=== PATIENT | female | born 1935 | race Caucasian/White ===

== ENCOUNTER 2017-11-02 15:00 | Inpatient (IN) | payer OTHER, MEDICARE ==
[~2017-11-02] VITALS: Ht 152.4 cm; Wt 52.6 kg
[~2017-11-02 15:00] MED LIST: ATOR10 PO; CARV6.25 PO; ECOT81TA2 PO; FURO20 PO; LISI5 PO; PROT40TA PO
[2017-11-02 15:13] VITALS: BP 184/88; PULSE 74; RESP 16; TEMP 98.3; O2SAT 96
[2017-11-02] MEDS ORDERED: SACU1TAB4 PO ×2 (15:13→16:03)
[2017-11-02] MEDS ORDERED: LOSA50TA PO (15:13)
[2017-11-02] MEDS ORDERED: ASPI81TA23 PO (15:13)
[2017-11-02 15:17] VITALS: BP 184/88; PULSE 75; RESP 16; TEMP 98.3; O2SAT 96
--- NOTE | 2017-11-02 15:53 | PD ---
HPI Chief Complaint: Fall Time Seen by Provider: 15:51 Travel History International Travel<30 days: No Contact w/Intl Traveler<30days: No Traveled to known affect area: No History of Present Illness HPI 81-year-old female presents to the emergency department after a [place]. Patient is not on blood thinners except for a baby aspirin daily. Patient states that she tripped over a rock or some sort of bump in the sidewalk and fell landing on her left wrist, left elbow, right wrist, and forehead. Patient denies loss of consciousness or headaches at this time. Denies blurred vision. Denies unusual neck or back pain. Currently she has left wrist, left elbow, and right wrist pain. Left elbow has limited range of motion with moderate pain that increases with movement. Left wrist is also moderately painful that increases with movement. Patient denies numbness or tingling of the extremities. Family states that she had a biopsy of the left eyebrow approximately 1 month ago, an area close to where she has a laceration currently. Patient states she feels fine but has significant left elbow pain. Denies fever or chills. Denies nausea, vomiting or diarrhea. PFSH Past Medical History Hx Anticoagulant Therapy: Yes Arthritis: Yes Cancer: No Cardiovascular Problems: Yes Chest Pain: No Congestive Heart Failure: Yes (NEW ONSET 04/19/16) Diminished Hearing: No Endocrine: No Genitourinary: No Headaches: Yes Herniated Disk: Yes ("SHATTERED DISCS" ) Immune Disorder: No Musculoskeletal: Yes Neurologic: No Psychiatric: No Reproductive: No Respiratory: No Immunizations Current: Yes Ulcer: Yes (GASTRIC ?) Tetanus Vaccination: Unknown Menopausal: Yes : 3 Para: 3 Past Surgical History Surgical History: No Previous Surgery Other Surgery: No Social History Alcohol Use: No Tobacco Use: No (QUIT 1994) Substance Use: No Allergies-Medications (Allergen,Severity, Reaction): Coded Allergies: No Known Allergies (Unverified , 04/19/16) Reported Meds & Prescriptions Reported Meds & Active Scripts Active Reported Entresto (Sacubitril-Valsartan) 97-103 Mg Tab 1 Tab PO BID Carvedilol 12.5 Mg Tab 12.5 Mg PO BID Pantoprazole (Pantoprazole Sodium) 40 Mg Tab 40 Mg PO DAILY Atorvastatin (Atorvastatin Calcium) 10 Mg Tab 10 Mg PO DAILY Furosemide 20 Mg Tab 20 Mg PO EVERY OTHER DAY Aspirin EC (Aspirin) 81 Mg Tabdr 81 Mg PO DAILY Review of Systems Except as stated in HPI: all other systems reviewed are Neg Physical Exam Narrative GENERAL: Well developed well nourished in mild distress SKIN: Focused skin assessment warm/dry. HEAD: Normocephalic. 2-3cm linear laceration to left brow, bleeding controlled. EYES: Pupils equal and round. No scleral icterus. No injection or drainage. EOMI ENT: No nasal bleeding or discharge. Mucous membranes pink and moist. NECK: Trachea midline. No JVD. Midline nontender CARDIOVASCULAR: Regular rate and rhythm. No murmur appreciated. RESPIRATORY: No accessory muscle use. Clear to auscultation. Breath sounds equal bilaterally. GASTROINTESTINAL: Abdomen soft, non-tender, nondistended. MUSCULOSKELETAL: No obvious deformities. No clubbing. No cyanosis. No edema. Left wrist- TTP to joint line, limited ROM secondary to pain. Neurovasc intact Right wrist-TTP to joint line, limited ROM secondary to pain. Neurovasc intact Left elbow- Obvious deformities with edema, limited ROM secondary to pain. Neurovasc intact BACK: No CVA tenderness. No rash. No point tenderness on palpation of the spine. NEUROLOGICAL: Awake and alert. No obvious cranial nerve deficits. Motor grossly within normal limits. Normal speech. PSYCHIATRIC: Appropriate mood and affect; insight and judgment normal. Data Data Last Documented VS Vital Signs Date Time Temp Pulse Resp B/P (MAP) Pulse Ox O2 Delivery O2 Flow Rate FiO2 11/02/17 17:31 69 16 149/68 (95) 96 Room Air 11/02/17 15:[address] Cerv Spine W/O Contrast (11/02/17 ) Ct Brain W/O Iv Contrast(Rout) (11/02/17 ) Wrist, Complete ([id number]) (11/02/17 ) Chest, Single Ap (11/02/17 ) Knee, Complete (4vws) (11/02/17 ) Electrocardiogram (11/02/17 16:59) Complete Blood Count With Diff (11/02/17 16:59) Comprehensive Metabolic Panel (11/02/17 16:59) Magnesium (Mg) (11/02/17 16:59) Ckmb (Isoenzyme) Profile (11/02/17 16:59) Troponin I (11/02/17 16:59) Urinalysis - C+S If Indicated (11/02/17 16:59) Blood Glucose (11/02/17 16:59) Ondansetron Inj (Zofran Inj) (11/02/17 17:00) Sodium Chlor 0.9% 1000 Ml Inj (Ns 1000 M (11/02/17 16:59) Wrist, Limited (Ap&Lat) (11/02/17 ) Elbow, Limited (Ap&Lat) (11/02/17 ) Ct Facial Bones W/O Iv Cont (11/02/17 ) Tetanus/Diphtheria Tox Adult (Tetanus/Di (11/02/17 17:45) Admit Order (Ed Use Only) (11/02/17 19:11) Labs Laboratory Tests Test 11/02/17 17:20 White Blood Count 7.3 TH/MM3 Red Blood Count 3.32 MIL/MM3 Hemoglobin 11.1 GM/DL Hematocrit 32.3 % Mean Corpuscular Volume 97.4 FL Mean Corpuscular Hemoglobin 33.5 PG Mean Corpuscular Hemoglobin Concent 34.4 % Red Cell Distribution Width 13.0 % Platelet Count 192 TH/MM3 Mean Platelet Volume 9.2 FL Neutrophils (%) (Auto) 77.3 % Lymphocytes (%) (Auto) 13.7 % Monocytes (%) (Auto) 5.5 % Eosinophils (%) (Auto) 2.7 % Basophils (%) (Auto) 0.8 % Neutrophils # (Auto) 5.6 TH/MM3 Lymphocytes # (Auto) 1.0 TH/MM3 Monocytes # (Auto) 0.4 TH/MM3 Eosinophils # (Auto) 0.2 TH/MM3 Basophils # (Auto) 0.1 TH/MM3 CBC Comment DIFF FINAL Differential Comment Urine Color LIGHT-YELLOW Urine Turbidity CLEAR Urine pH 7.5 Urine Specific [place] 1.007 Urine Protein NEG mg/dL Urine Glucose (UA) NEG mg/dL Urine Ketones NEG mg/dL Urine Occult Blood NEG Urine Nitrite NEG Urine Bilirubin NEG Urine Urobilinogen LESS THAN 2.0 MG/DL Urine Leukocyte Esterase NEG Microscopic Urinalysis Comment CULT NOT INDICATED Blood Urea Nitrogen 7 MG/DL Creatinine 0.56 MG/DL Random Glucose 127 MG/DL Total Protein 6.9 GM/DL Albumin 4.3 GM/DL Calcium Level 9.0 MG/DL Magnesium Level 1.8 MG/DL Alkaline Phosphatase 40 U/L Aspartate Amino Transf (AST/SGOT) 23 U/L Alanine Aminotransferase (ALT/SGPT) 17 U/L Total Bilirubin 0.4 MG/DL Sodium Level 128 MEQ/L Potassium Level 4.0 MEQ/L Chloride Level 92 MEQ/L Carbon Dioxide Level 27.0 MEQ/L Anion Gap 9 MEQ/L Estimat Glomerular Filtration Rate 103 ML/MIN Total Creatine Kinase 90 U/L Troponin I 0.65 NG/ML [facility] Medical Decision Making Medical Screen Exam Complete: Yes Emergency Medical Condition: Yes Differential Diagnosis Left and right wrist fracture, sprain, strain Left elbow fracture, strain, contusion Left brow fracture, laceration, contusion Narrative Course 81-year-old female with a history of CHF presents to the emergency department after a mechanical [place] that occurred [place] the [place]. Patient is not on blood thinners except for a baby aspirin daily. Patient states that she tripped over a rock or some sort of bump in the sidewalk and fell landing on her left wrist, left elbow, right wrist, and forehead. Patient denies loss of consciousness or headaches at this time. Denies blurred vision. Denies unusual neck or back pain. Currently she has left wrist, left elbow, and right wrist pain. Left elbow has limited range of motion with moderate pain that increases with movement. Left wrist is also painful that increases with movement. Patient denies numbness or tingling. Family states that she had a biopsy of the left eyebrow approximately 1 month ago and area close to where she has a laceration currently. Patient states she feels fine but has significant left elbow pain. Denies fever or chills. Denies nausea, vomiting or diarrhea. Denies chest pain or shortness of breath. Vital signs stable. While the patient was in x-ray, a CODE BLUE was called. Patient apparently had a syncopal episode. She was brought back immediately her room and was reassessed. Pt stated she had the episode after sitting up for the chest xray. 1L NS bolus administered, labs ordered. EKG demonstrated normal sinus rhythm without ST depressions or elevations. Last Impressions Wrist X-Ray 11/02/17 0000 Signed Impressions: Service Date/Time: Thursday, November 02, 2017 16:39 - CONCLUSION: No evidence of fracture the wrist. Kirby Melo MD Wrist X-Ray 11/02/17 0000 Signed Impressions: Service Date/Time: Thursday, November 02, 2017 16:50 - CONCLUSION: Impacted comminuted intra-articular distal radius fracture. Kirby Melo MD Maxillofacial CT 11/02/17 0000 Signed Impressions: Service Date/Time: Thursday, November 02, 2017 17:44 - CONCLUSION: No evidence of fracture. Bilateral TMJ arthrosis noted. Kirby Melo MD Knee X-Ray 11/02/17 0000 Signed Impressions: Service Date/Time: Thursday, November 02, 2017 16:43 - CONCLUSION: 1. No evidence of fracture. 2. Small joint effusion. Kirby Melo MD Head CT 11/02/17 0000 Signed Impressions: Service Date/Time: Thursday, November 02, 2017 17:44 - CONCLUSION: No acute intracranial findings. Kirby Melo MD Elbow X-Ray 11/02/17 0000 Signed Impressions: Service Date/Time: Thursday, November 02, 2017 16:28 - CONCLUSION: Olecranon process fracture. Kirby Melo MD Chest X-Ray 11/02/17 0000 Signed Impressions: Service Date/Time: Thursday, November 02, 2017 17:17 - CONCLUSION: No acute cardiopulmonary disease identified. Kirby Melo MD Cervical Spine CT 11/02/17 0000 Signed Impressions: Service Date/Time: Thursday, November 02, 2017 17:44 - CONCLUSION: 1. No evidence of fracture. 2. 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 There is evidence of particularly prominent arthrosis at C1 to with superior migration of the C2 odontoid process (cranial settling). This finding can be seen with rheumatoid arthritis. 3. Mild central canal narrowing at C3-4 and C4-5. Kirby Melo MD CBC & BMP Diagram 11/02/17 17:20 Total Protein 6.9, Albumin 4.3, Calcium Level 9.0, Magnesium Level 1.8, Alkaline Phosphatase 40 L, Aspartate Amino Transf (AST/SGOT) 23, Alanine Aminotransferase (ALT/SGPT) 17, Total Bilirubin 0.4 Troponin elevated likely secondary to cardiomyopathy. Laceration repair completed left brow. Suture removal in 7-10 days. Note that she had a BCC removal approx 1 month ago and the site appears to be healing well. Please see Dr. Gardner's note for dispo. Pt will be admitted and surgery in the morning. Procedures Procedure Narrative LACERATION LOCATION: left upper brow LENGTH: 2-3cm NUMBER OF STITCHES/TOM: 5 REPAIR: The area of the laceration was prepped with Betadine and sterilely draped. The laceration was infiltrated with 1% lidocaine without epinephrine. The wound was copiously irrigated and explored without evidence of foreign body, tendon injury or neurovascular injury. The wound was closed using 6-0 Prolene. This was a angle layer repair. A sterile dressing was applied. The patient was advised to keep the dressing clean and dry. Patient tolerated the procedure well. Diagnosis Primary Impression: Laceration of head Qualified Codes: S01.01XA - Laceration without foreign body of scalp, initial encounter Additional Impressions: Elbow fracture Qualified Codes: S42.402A - Unspecified fracture of lower end of left humerus , initial encounter for closed fracture Wrist fracture Qualified Codes: S62.101A - Fracture of unspecified carpal bone, right wrist, initial encounter for closed fracture Episode of syncope Qualified Codes: R55 - Syncope and collapse Condition: Stable Sandhya Purvis Nov 02, 2017 15:53
[2017-11-02] MEDS ORDERED: CARV12.52 PO (16:03)
[2017-11-02] MEDS ORDERED: ATOR10TA15 PO (16:03)
[2017-11-02] MEDS ORDERED: FURO20TA PO (16:03)
[2017-11-02] MEDS ORDERED: PANT40TA3 PO (16:03)
[2017-11-02] MEDS ORDERED: SODIUM CHLOR 0.9% 1000 ML INJ 1,000 ML IV ONE (16:59)
[2017-11-02] MEDS ORDERED: ONDANSETRON HCL 4 MG/2 ML VIAL IVP ONE (17:00)
[2017-11-02 17:31] VITALS: BP 149/68; PULSE 69; RESP 16; O2SAT 96
--- NOTE | 2017-11-02 17:37 | RADRPT ---
EXAM DATE/TIME: 11/02/2017 16:28 [facility] COMPARISON: No previous studies available for comparison. INDICATIONS : Pain from fall. MEDICAL HISTORY : None. SURGICAL HISTORY : None. ENCOUNTER: Initial ACUITY: 1 day PAIN SCORE: 10/10 LOCATION: Left elbow. FINDINGS: 3 views left elbow. Fracture of the olecranon process of the ulna with 1 cm displacement. Joint effus ion noted. Alignment otherwise within normal limits. CONCLUSION: Olecranon process fracture. Kirby Melo MD on November 02, 2017 at 17:35 Board Certified Radiologist. This report was verified electronically.
--- NOTE | 2017-11-02 17:41 | RADRPT ---
EXAM DATE/TIME: 11/02/2017 16:39 [facility] COMPARISON: No previous studies available for comparison. INDICATIONS : Pain from fall. MEDICAL HISTORY : None. SURGICAL HISTORY : None. ENCOUNTER: Initial ACUITY: 1 day PAIN SCORE: 5/10 LOCATION: Left wrist. FINDINGS: 2 views left wrist. Diffuse bone demineralization. Chondrocalcinosis of the triangular fibrocartilage and radiocarpal joint articular cartilage. Alignment within normal limits. No evidence of fracture. Osteoarthritic findings noted at the base of the thumb. CONCLUSION: No evidence of fracture the wrist. Kirby Melo MD on November 02, 2017 at 17:39 Board Certified Radiologist. This report was verified electronically.
[2017-11-02] MEDS ORDERED: TETANUS/DIPHTHERIA TOXOID ADULT 0.5 ML VIAL IM ONE (17:45)
--- NOTE | 2017-11-02 17:45 | RADRPT ---
EXAM DATE/TIME: 11/02/2017 16:43 [facility] COMPARISON: No previous studies available for comparison. INDICATIONS : Pain from fall. MEDICAL HISTORY : None. SURGICAL HISTORY : None. ENCOUNTER: Initial ACUITY: 1 day PAIN SCORE: 5/10 LOCATION: Right knee. FINDINGS: 4 views right knee. Diffuse bone demineralization. No evidence of fracture. Alignment within normal l imits. No joint narrowing. Small joint effusion. CONCLUSION: 1. No evidence of fracture. 2. Small joint effusion. Kirby Melo MD on November 02, 2017 at 17:43 Board Certified Radiologist. This report was verified electronically.
--- NOTE | 2017-11-02 17:46 | RADRPT ---
EXAM DATE/TIME: 11/02/2017 16:50 [facility] COMPARISON: No previous studies available for comparison. INDICATIONS : Pain from fall. MEDICAL HISTORY : None. SURGICAL HISTORY : None. ENCOUNTER: Initial ACUITY: 1 day PAIN SCORE: 10/10 LOCATION: Right wrist. FINDINGS: 3 views right wrist. Comminuted impacted fracture of the distal radius with extension into the radioc arpal joint. 3 mm cortical step off of the volar surface. Extensive chondrocalcinosis. Severe osteoar thritic findings of the thumb carpometacarpal joint. CONCLUSION: Impacted comminuted intra-articular distal radius fracture. Kirby Melo MD on November 02, 2017 at 17:44 Board Certified Radiologist. This report was verified electronically.
[2017-11-02 17:50] LABS: AUTOMATED NEUTROPHIL # 5.6 TH/MM3 (1.8-7.7); BASOPHIL # 0.1 TH/MM3 (0-0.2); BASOPHIL % 0.8 % (0.0-2.0); EOSINOPHIL # 0.2 TH/MM3 (0-0.4); EOSINOPHIL % 2.7 % (0.0-4.0); HEMATOCRIT 32.3 % (35.0-46.0); HEMOGLOBIN 11.1 GM/DL (11.6-15.3); LYMPH % 13.7 % (9.0-44.0); MEAN CELL VOLUME 97.4 FL (80.0-100.0); MEAN CORPUSCULAR HEMOGLOBIN 33.5 PG (27.0-34.0); MEAN CORPUSCULAR HGB CONC 34.4 % (32.0-36.0); MEAN PLATELET VOLUME 9.2 FL (7.0-11.0); MONO % 5.5 % (0.0-8.0); MONOCYTE # 0.4 TH/MM3 (0-0.9); NEUT % 77.3 % (16.0-70.0); PLATELET COUNT 192 TH/MM3 (150-450); RED BLOOD COUNT 3.32 MIL/MM3 (4.00-5.30); WHITE BLOOD COUNT 7.3 TH/MM3 (4.0-11.0)
[2017-11-02 17:51] LABS: BILIRUBIN, URINE NEG (NEG); BLOOD, URINE NEG (NEG); GLUCOSE,URINE NEG (NEG); KETONE, URINE NEG (NEG); NITRITE,URINE NEG (NEG); PH, URINE 7.5 (5.0-8.5); URINE COLOR LIGHT-YELLOW (YELLW/STRAW); URINE LEUKOCYTE ESTERASE NEG (NEG)
[2017-11-02 18:08] LABS: ALBUMIN 4.3 GM/DL (3.4-5.0); AST (GOT) 23 U/L (15-37); BLOOD UREA NITROGEN 7 MG/DL (7-18); CHLORIDE 92 MEQ/L (98-107); CREATININE 0.56 MG/DL (0.50-1.00); GLOMERULAR FILTRATION RATE 103 ML/MIN (>89); GLUCOSE,RANDOM 127 MG/DL (74-106); MAGNESIUM 1.8 MG/DL (1.5-2.5); SODIUM (NA) 128 MEQ/L (136-145)
[2017-11-02 18:09] LABS: ALT (GPT) 17 U/L (10-53)
[2017-11-02 18:13] LABS: ALKALINE PHOSPHATASE 40 U/L (45-117); TOTAL BILIRUBIN ADULT 0.4 MG/DL (0.2-1.0); TOTAL PROTEIN 6.9 GM/DL (6.4-8.2)
--- NOTE | 2017-11-02 18:14 | RADRPT ---
EXAM DATE/TIME: 11/02/2017 17:17 [facility] COMPARISON: CHEST SINGLE AP, May 10, 2016, 0:08. INDICATIONS : Shortness of breath. MEDICAL HISTORY : None. SURGICAL HISTORY : None. ENCOUNTER: Initial ACUITY: 1 day PAIN SCORE: 0/10 LOCATION: Bilateral chest FINDINGS: Single AP view of the chest. The lungs are clear. Tortuous, calcified thoracic aorta Cardiomediastina l silhouette otherwise within normal limits. No evidence of pleural effusion or pneumothorax. CONCLUSION: No acute cardiopulmonary disease identified. Kirby Melo MD on November 02, 2017 at 18:12 Board Certified Radiologist. This report was verified electronically.
[2017-11-02 18:18] LABS: TROPONIN I 0.65 NG/ML (0.02-0.05)
--- NOTE | 2017-11-02 18:23 | RADRPT ---
EXAM DATE/TIME: 11/02/2017 17:44 [facility] COMPARISON: No previous studies available for comparison. INDICATIONS : Trauma; fall. RADIATION DOSE: 29.05 CTDIvol (mGy) MEDICAL HISTORY : Cardiovascular disease. Congestive heart failure. SURGICAL HISTORY : None. ENCOUNTER: Initial ACUITY: 1 day PAIN SCALE: 5/10 LOCATION: cranial TECHNIQUE: Multiple contiguous axial images were obtained of the head. Using automated exposure control and adj ustment of the mA and/or kV according to patient size, radiation dose was kept as low as reasonably a chievable to obtain optimal diagnostic quality images. DICOM format image data is available electro nically for review and comparison. FINDINGS: CEREBRUM: The ventricles are normal for age. No evidence of midline shift, mass lesion, hemorrhage or acute in farction. No extra-axial fluid collections are seen. POSTERIOR FOSSA: The cerebellum and brainstem are intact. The 4th ventricle is midline. The cerebellopontine angle i s unremarkable. EXTRACRANIAL: The visualized portion of the orbits is intact. SKULL: The calvaria is intact. No evidence of skull fracture. CONCLUSION: No acute intracranial findings. Kirby Melo MD on November 02, 2017 at 18:20 Board Certified Radiologist. This report was verified electronically.
--- NOTE | 2017-11-02 18:46 | RADRPT ---
EXAM DATE/TIME: 11/02/2017 17:44 [facility] COMPARISON: No previous studies available for comparison. INDICATIONS : Trauma; fall. RADIATION DOSE: 50.51 CTDIvol (mGy) MEDICAL HISTORY : Cardiovascular disease. Congestive heart failure. SURGICAL HISTORY : None. ENCOUNTER: Initial ACUITY: 1 day PAIN SCORE: 5/10 LOCATION: facial TECHNIQUE: Volumetric scanning of the facial bones was performed. Using automated exposure control and adjustme nt of the mA and/or kV according to patient size, radiation dose was kept as low as reasonably achiev able to obtain optimal diagnostic quality images. DICOM format image data is available electronic[employer] y for review and comparison. FINDINGS: ORBITS: The orbital and infraorbital osseous structures are intact. The retroconal structures have a normal configuration. No radiopaque foreign bodies are seen. NASAL BONE: The nasal bone and maxillary spine are intact ZYGOMATIC ARCHES: Symmetric without evidence of fracture. SINUSES: The maxillary, ethmoid and frontal sinuses are intact. No air-fluid levels seen. INTRACRANIAL: No intracranial air seen. CRIBIFORM PLATE: Grossly intact. CONCLUSION: No evidence of fracture. Bilateral TMJ arthrosis noted. Kirby Melo MD on November 02, 2017 at 18:43 Board Certified Radiologist. This report was verified electronically.
--- NOTE | 2017-11-02 18:50 | RADRPT ---
EXAM DATE/TIME: 11/02/2017 17:44 [facility] COMPARISON: No previous studies available for comparison. INDICATIONS : Trauma; fall. RADIATION DOSE: 11.49 CTDIvol (mGy) MEDICAL HISTORY : Cardiovascular disease. Congestive heart failure. SURGICAL HISTORY : None. ENCOUNTER: Initial ACUITY: 1 day PAIN SCALE: 5/10 LOCATION: neck TECHNIQUE: Volumetric scanning of the cervical spine was performed. Multiplanar reconstructions in the sagittal, coronal and oblique axial planes were performed. Using automated exposure control and adjustment o f the mA and/or kV according to patient size, radiation dose was kept as low as reasonably achievable to obtain optimal diagnostic quality images. DICOM format image data is available electronically f or review and comparison. FINDINGS: VERTEBRAE: Severe arthritic findings at C1-2 with bone erosion of the odontoid process and superior migration of the odontoid process relative to the skull base. These findings can be seen with rheumatoid arthriti s. No evidence of fracture. ALIGNMENT: Superior migration of C2 relative to C1 and skull base. 2 mm anterolisthesis C7 on T1. Broad-based disc osteophyte complexes and prominent facet arthrosis at every level of the cervical sp ine. Minimal central canal narrowing at C3-4 and C4-5. Mild bilateral neural foraminal narrowing at C 5-6. CONCLUSION: 1. No evidence of fracture. 2. 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 There is evidence of partic ularly prominent arthrosis at C1 to with superior migration of the C2 odontoid process (cranial settl ing). This finding can be seen with rheumatoid arthritis. 3. Mild central canal narrowing at C3-4 and C4-5. Kirby Melo MD on November 02, 2017 at 18:44 Board Certified Radiologist. This report was verified electronically.
[2017-11-02 19:15] VITALS: BP 159/71; PULSE 73; RESP 18; O2SAT 94
--- NOTE | 2017-11-02 19:16 | PD ---
Data Data Last Documented VS Vital Signs Date Time Temp Pulse Resp B/P (MAP) Pulse Ox O2 Delivery O2 Flow Rate FiO2 11/02/17 17:31 69 16 149/68 (95) 96 Room Air 11/02/17 15:[address] Cerv Spine W/O Contrast (11/02/17 ) Ct Brain W/O Iv Contrast(Rout) (11/02/17 ) Wrist, Complete ([id number]) (11/02/17 ) Chest, Single Ap (11/02/17 ) Knee, Complete (4vws) (11/02/17 ) Electrocardiogram (11/02/17 ) Electrocardiogram (11/02/17 16:59) Complete Blood Count With Diff (11/02/17 16:59) Comprehensive Metabolic Panel (11/02/17 16:59) Magnesium (Mg) (11/02/17 16:59) Ckmb (Isoenzyme) Profile (11/02/17 16:59) Troponin I (11/02/17 16:59) Urinalysis - C+S If Indicated (11/02/17 16:59) Blood Glucose (11/02/17 16:59) Ondansetron Inj (Zofran Inj) (11/02/17 17:00) Sodium Chlor 0.9% 1000 Ml Inj (Ns 1000 M (11/02/17 16:59) Wrist, Limited (Ap&Lat) (11/02/17 ) Elbow, Limited (Ap&Lat) (11/02/17 ) Ct Facial Bones W/O Iv Cont (11/02/17 ) Tetanus/Diphtheria Tox Adult (Tetanus/Di (11/02/17 17:45) Admit Order (Ed Use Only) (11/02/17 19:11) Labs Laboratory Tests Test 11/02/17 17:20 White Blood Count 7.3 TH/MM3 Red Blood Count 3.32 MIL/MM3 Hemoglobin 11.1 GM/DL Hematocrit 32.3 % Mean Corpuscular Volume 97.4 FL Mean Corpuscular Hemoglobin 33.5 PG Mean Corpuscular Hemoglobin Concent 34.4 % Red Cell Distribution Width 13.0 % Platelet Count 192 TH/MM3 Mean Platelet Volume 9.2 FL Neutrophils (%) (Auto) 77.3 % Lymphocytes (%) (Auto) 13.7 % Monocytes (%) (Auto) 5.5 % Eosinophils (%) (Auto) 2.7 % Basophils (%) (Auto) 0.8 % Neutrophils # (Auto) 5.6 TH/MM3 Lymphocytes # (Auto) 1.0 TH/MM3 Monocytes # (Auto) 0.4 TH/MM3 Eosinophils # (Auto) 0.2 TH/MM3 Basophils # (Auto) 0.1 TH/MM3 CBC Comment DIFF FINAL Differential Comment Urine Color LIGHT-YELLOW Urine Turbidity CLEAR Urine pH 7.5 Urine Specific Atkins 1.007 Urine Protein NEG mg/dL Urine Glucose (UA) NEG mg/dL Urine Ketones NEG mg/dL Urine Occult Blood NEG Urine Nitrite NEG Urine Bilirubin NEG Urine Urobilinogen LESS THAN 2.0 MG/DL Urine Leukocyte Esterase NEG Microscopic Urinalysis Comment CULT NOT INDICATED Blood Urea Nitrogen 7 MG/DL Creatinine 0.56 MG/DL Random Glucose 127 MG/DL Total Protein 6.9 GM/DL Albumin 4.3 GM/DL Calcium Level 9.0 MG/DL Magnesium Level 1.8 MG/DL Alkaline Phosphatase 40 U/L Aspartate Amino Transf (AST/SGOT) 23 U/L Alanine Aminotransferase (ALT/SGPT) 17 U/L Total Bilirubin 0.4 MG/DL Sodium Level 128 MEQ/L Potassium Level 4.0 MEQ/L Chloride Level 92 MEQ/L Carbon Dioxide Level 27.0 MEQ/L Anion Gap 9 MEQ/L Estimat Glomerular Filtration Rate 103 ML/MIN Total Creatine Kinase 90 U/L Troponin I 0.65 NG/ML MDM Supervised Visit with MASOOD: Yes Narrative Course I, Dr. Gardner, have reviewed the advance practice practitioner's documentation and am in agreement, met with the patient face to face, made the diagnosis, and the medical decision making was done by me. See her note for further details. Briefly this is an 81-year-old female with history of cardiomegaly who was brought in by ambulance after mechanical fall. The patient was complaining of right wrist pain, left elbow pain, left wrist pain, and head pain. Patient was initially evaluated about an hour prior to me arriving to my shift. Upon arrival there was a CODE BLUE called overhead at x-ray which I responded to an this happened to be this patient. She had a syncopal episode while her x-rays were being performed. Patient reports history of cardiomegaly and CHF and is on Lasix every other day and is followed by control operator flow coat Dr. Solis. She denies having any chest pain today. The fall that she had earlier today she denies losing consciousness. Patient has a closed right/impacted distal radius fracture as well as a closed left olecranon fracture. Left forehead laceration was repaired by my PA. EKG shows a left bundle-branch block pattern with a rate of 73, no acute ischemic abnormalities. The patient's troponin is slightly elevated at 0.65. She has had slight elevation in troponin in the past and is not complaining of any chest pain. This is likely secondary to cardiomegaly. I discussed the case with on-call orthopedist Dr. Tate. Plan is to splint her left arm in a long-arm splint and right wrist in a short arm volar splint that she has an IV in this arm, and the patient will be admitted to the medical service for cardiac clearance for ORIF. He would like the patient to be NPO after midnight. CT head, cervical spine, and facial bones show no acute findings. Patient and the patient's daughter were made aware of all findings and of plan. Case discussed with hospitalist Dr. Ross who will admit the patient to her service. Diagnosis Primary Impression: Laceration of head Qualified Codes: S01.01XA - Laceration without foreign body of scalp, initial encounter Additional Impressions: Episode of syncope Qualified Codes: R55 - Syncope and collapse Wrist fracture Qualified Codes: S62.101A - Fracture of unspecified carpal bone, right wrist, initial encounter for closed fracture Elbow fracture Qualified Codes: S42.402A - Unspecified fracture of lower end of left humerus , initial encounter for closed fracture Admitting Information Admitting Physician Requests: Admit Condition: Stable Chuckie Gardner MD Nov 02, 2017 19:16
[2017-11-02] MEDS ORDERED: ACETAMINOPHEN/HYDROcodone 325 MG/5 MG TAB PO ONE (20:00)
[2017-11-02] MEDS: SODIUM CHLOR 0.9% 1000 ML INJ 1,000 ML IV SCH (20:14)
[2017-11-02] MEDS ORDERED: BISACODYL 10 MG SUPP RECTAL PRN (20:15)
[2017-11-02] MEDS ORDERED: SODIUM CHLORIDE 0.9% FLUSH 10 ML FLUSH IV FLUSH PRN (20:15)
[2017-11-02] MEDS ORDERED: MAGNESIUM HYDROXIDE SUSP 30 ML CUP PO PRN (20:15)
[2017-11-02] MEDS ORDERED: LACTULOSE SYRUP 20 GM/30 ML CUP PO PRN (20:15)
[2017-11-02] MEDS ORDERED: NALOXONE HCL 0.4 MG/ML AMP IV PUSH PRN (20:15)
[2017-11-02] MEDS ORDERED: SENNOSIDES 8.6 MG TAB PO PRN (20:15)
[2017-11-02 20:45] VITALS: BP 151/72; PULSE 57; RESP 16; TEMP 97.7; O2SAT 95
[2017-11-02] MEDS ORDERED: SODIUM CHLORID 0.9% 500 ML IV PRN (21:00)
[2017-11-02] MEDS: SODIUM CHLORIDE 0.9% FLUSH 10 ML FLUSH IV FLUSH SCH (21:00)
[2017-11-02] MEDS ORDERED: LACTATED RINGER'S 1000 ML IV PRN (21:00)
[2017-11-02] MEDS ORDERED: CHLORHEXIDINE GLUCONATE 2 % 1 PACK (2 CLOTHS) TOPICAL PRN (21:15)
[2017-11-02] MEDS ORDERED: METOPROLOL TARTRATE 25 MG TAB PO PRN (21:15)
[2017-11-02] MEDS ORDERED: POVIDONE IODINE 5% (ANTISEPSIS KIT) 4 APPLICATIONS EACH NARE PRN (21:15)
--- NOTE | 2017-11-02 21:21 | HHI.HP ---
[facility] Service [facility] Primary Care Physician Noe Pena MD Admission Diagnosis fall, wrist fracture, elbow fracture, syncope, CHI Diagnoses: Travel History International Travel<30 Days: No Contact w/Intl Traveler <30 Da: No Traveled to Known Affected Are: No History of Present Illness 81-year-old female with a past medical history significant for CHF (last echo done on 04/26 showed an EF of 25-30%), hypertension, osteoarthritis and a history of temporal arteritis presents to the emergency department after suffering a mechanical fall. The patient states she [place] the [place] and [place]. She denies loss of consciousness at that time. X-rays positive for an impacted intra-articular distal radius fracture of the right wrist and a left olecranon process fracture. The patient also sustained a laceration to the head just above the eyebrow which was repaired in the emergency department. While in x-ray, the patient had a syncopal episode for which a CODE BLUE was called. She regained consciousness without intervention. Lab work remarkable for an elevated troponin at 0.65, was less than 0.02 on . The patient denies any chest pain or previous syncopal episodes. EKG showed NSR without ST segment elevations or depressions. Review of Systems Denies fever or chills Denies blurry vision, otorrhea, rhinorrhea Denies sore throat and cough No chest pain, palpitations, shortness of breath No abdominal pain Denies constipation/diarrhea/nausea/vomiting Denies muscle pain/weakness No rashes Past Family Social History Past Medical History CHF (EF of 25-30%) Hypertension Osteoarthritis History of temporal arteritis GERD Hyperlipidemia Past Surgical History None Reported Medications Reported Meds & Active Scripts Active Reported Entresto (Sacubitril-Valsartan) 97-103 Mg Tab 1 Tab PO BID Carvedilol 12.5 Mg Tab 12.5 Mg PO BID Pantoprazole (Pantoprazole Sodium) 40 Mg Tab 40 Mg PO DAILY Atorvastatin (Atorvastatin Calcium) 10 Mg Tab 10 Mg PO DAILY Furosemide 20 Mg Tab 20 Mg PO EVERY OTHER DAY Aspirin EC (Aspirin) 81 Mg Tabdr 81 Mg PO DAILY Allergies: Coded Allergies: No Known Allergies (Unverified , 04/19/16) Family History Denies family history of CHF/DM Social History Denies alcohol, tobacco or illicit drugs. Physical Exam Vital Signs Vital Signs Date Time Temp Pulse Resp B/P (MAP) Pulse Ox O2 Delivery O2 Flow Rate FiO2 11/02/17 20:33 11/02/17 19:15 73 18 159/71 (100) 94 Room Air 11/02/17 17:31 69 16 149/68 (95) 96 Room Air 11/02/17 15:17 98.3 75 16 184/88 (120) 96 Room Air 11/02/17 15:16 75 16 96 Room Air 11/02/17 15:13 98.3 74 16 184/88 (120) 96 Physical Exam GENERAL: female lying in bed SKIN: No rashes, ecchymoses or lesions. Cool and dry. HEAD: Ecchymoses surrounding left eye. 3 cm laceration above left eyebrow, hemostatic status post repair. Normocephalic. No temporal or scalp tenderness. EYES: Pupils equal round and reactive. Extraocular motions intact. No scleral icterus. No injection or drainage. ENT: Nose without bleeding, purulent drainage or septal hematoma. Throat without erythema, tonsillar hypertrophy or exudate. Uvula midline. Airway patent. NECK: Trachea midline. No JVD or lymphadenopathy. Supple, nontender, no meningeal signs. CARDIOVASCULAR: Regular rate and rhythm without murmurs, gallops, or rubs. RESPIRATORY: Clear to auscultation. Breath sounds equal bilaterally. No wheezes , rales, or rhonchi. GASTROINTESTINAL: Abdomen soft, non-tender, nondistended. No hepato-splenomegaly , or palpable masses. No guarding. MUSCULOSKELETAL: Bilateral lower extremities without edema. No calf tenderness. Bilateral upper extremities both splinted, neurovascularly intact. NEUROLOGICAL: Awake and alert. Cranial nerves II through XII intact. Motor and sensory grossly within normal limits. Normal speech. Laboratory Laboratory Tests Test 11/02/17 17:20 White Blood Count 7.3 Red Blood Count 3.32 Hemoglobin 11.1 Hematocrit 32.3 Mean Corpuscular Volume 97.4 Mean Corpuscular Hemoglobin 33.5 Mean Corpuscular Hemoglobin Concent 34.4 Red Cell Distribution Width 13.0 Platelet Count 192 Mean Platelet Volume 9.2 Neutrophils (%) (Auto) 77.3 Lymphocytes (%) (Auto) 13.7 Monocytes (%) (Auto) 5.5 Eosinophils (%) (Auto) 2.7 Basophils (%) (Auto) 0.8 Neutrophils # (Auto) 5.6 Lymphocytes # (Auto) 1.0 Monocytes # (Auto) 0.4 Eosinophils # (Auto) 0.2 Basophils # (Auto) 0.1 CBC Comment DIFF FINAL Differential Comment Urine Color LIGHT-YELLOW Urine Turbidity CLEAR Urine pH 7.5 Urine Specific Purdin 1.007 Urine Protein NEG Urine Glucose (UA) NEG Urine Ketones NEG Urine Occult Blood NEG Urine Nitrite NEG Urine Bilirubin NEG Urine Urobilinogen LESS THAN 2.0 Urine Leukocyte Esterase NEG Microscopic Urinalysis Comment CULT NOT INDICATED Blood Urea Nitrogen 7 Creatinine 0.56 Random Glucose 127 Total Protein 6.9 Albumin 4.3 Calcium Level 9.0 Magnesium Level 1.8 Alkaline Phosphatase 40 Aspartate Amino Transf (AST/SGOT) 23 Alanine Aminotransferase (ALT/SGPT) 17 Total Bilirubin 0.4 Sodium Level 128 Potassium Level 4.0 Chloride Level 92 Carbon Dioxide Level 27.0 Anion Gap 9 Estimat Glomerular Filtration Rate 103 Total Creatine Kinase 90 Troponin I 0.65 Result Diagram: 11/02/17 1720 11/02/17 1720 Caprini VTE Risk Assessment Caprini VTE Risk Assessment: Mod/High Risk (score >= 2) Caprini Risk Assessment Model Point Value = 1 Point Value = 2 Point Value = 3 Point Value = 5 Age 41-60 Minor surgery BMI > 25 kg/m2 Swollen legs Varicose veins or History of unexplained or recurrent spontaneous Oral contraceptives or hormone replacement Sepsis (< 1 month) Serious lung disease, including pneumonia (< 1 month) Abnormal pulmonary function Acute myocardial infarction Congestive heart failure (< 1 month) History of inflammatory bowel disease Medical patient at bed rest Age 61-74 Arthroscopic surgery Major open surgery (> 45 min) Laparoscopic surgery (> 45 min) Malignancy Confined to bed (> 72 hours) Immobilizing plaster cast Central venous access Age >= 75 History of VTE Family history of VTE Factor V Leiden Prothrombin [id number] Lupus anticoagulant Anticardiolipin antibodies Elevated serum homocysteine Heparin-induced thrombocytopenia Other congenital or acquired thrombophilia Stroke (< 1 month) Elective arthroplasty Hip, pelvis, or leg fracture Acute spinal cord injury (< 1 month) Prophylaxis Regimen Total Risk Factor Score Risk Level Prophylaxis Regimen 0-1 Low Early ambulation 2 Moderate Order ONE of the following: *Sequential Compression Device (SCD) *Heparin 5000 units SQ BID 3-4 Higher Order ONE of the following medications: *Heparin 5000 units SQ TID *Enoxaparin/Lovenox 40 mg SQ daily (WT < 150 kg, CrCl > 30 mL/min) *Enoxaparin/Lovenox 30 mg SQ daily (WT < 150 kg, CrCl > 10-29 mL/min) *Enoxaparin/Lovenox 30 mg SQ BID (WT < 150 kg, CrCl > 30 mL/min) AND/OR *Sequential Compression Device (SCD) 5 or more Highest Order ONE of the following medications: *Heparin 5000 units SQ TID (Preferred with Epidurals) *Enoxaparin/Lovenox 40 mg SQ daily (WT < 150 kg, CrCl > 30 mL/min) *Enoxaparin/Lovenox 30 mg SQ daily (WT < 150 kg, CrCl > 10-29 mL/min) *Enoxaparin/Lovenox 30 mg SQ BID (WT < 150 kg, CrCl > 30 mL/min) AND *Sequential Compression Device (SCD) Assessment and Plan Assessment and Plan Assessment/plan: 1. Impacted intra-articular distal radius fracture of the right wrist/Left olecranon process fracture Orthopedic surgery consulted, appreciate assistance Nothing by mouth after midnight in anticipation of OR tomorrow 2. Syncope Witnessed in the emergency department Unclear etiology Echo pending Carotid ultrasound pending 3. Elevated troponin Troponin 0.65 EKG shows normal sinus rhythm without ST segment elevations or depressions, images reviewed family Patient with history of elevated troponin in 2016 Patient's pm technician is Dr. Kate, consulted and appreciate recommendations in anticipation of surgery tomorrow ACS rule out pending; serial troponins/EKGs 4. CHF Last ECHO done 04/2016, showed an EF of 25-30% Continue home Lasix Appreciate cardiology recommendations 5. Hypertension Continue home carvedilol 6. GERD/hyperlipidemia Continue home medications FEN NPO NS at 50 cc/hr Electrolytes: NS for hyponatremia, follow up BMP Holding pharmacologic anticoagulation in anticipation of operative intervention tomorrow Case discussed with the ER physician at length Physician Certification 2 Midnight Certification Type: Admission for Inpatient Services Order for Inpatient Services The services are ordered in accordance with Medicare regulations or non- Medicare payer requirements, as applicable. In the case of services not specified as inpatient-only, they are appropriately provided as inpatient services in accordance with the 2-midnight benchmark. Estimated LOS (days): 2 2 days is the estimated time the patient will need to remain in the hospital, assuming treatment plan goals are met and no additional complications. Post-Hospital Plan: Not yet determined Casandra Ross MD Nov 02, 2017 21:21
[2017-11-02] MEDS: CARVEDILOL 12.5 MG TAB PO SCH (22:00)
[2017-11-02] MEDS: DOCUSATE SODIUM 50 MG/SENNA 8.6 MG TAB PO SCH (22:00)
[2017-11-02] MEDS: SACUBITRIL/VALSARTAN 97 MG-103 MG TAB PO SCH (22:00)
[2017-11-03] VITALS (13 sets, daily range): BP systolic 65–147; BP diastolic 42–67; PULSE 29–88; RESP 12–25; TEMP 98–100.4; O2SAT 88–100
[2017-11-03 01:53] LABS: TROPONIN I 1.57 NG/ML (0.02-0.05)
[2017-11-03] MEDS ORDERED: HEPARIN-D5W 25,000 U/250 ML 250 ML IV PRN (02:00)
[2017-11-03 03:13] LABS: AUTOMATED NEUTROPHIL # 5.2 TH/MM3 (1.8-7.7); BASOPHIL % 0.4 % (0.0-2.0); EOSINOPHIL # 0.1 TH/MM3 (0-0.4); EOSINOPHIL % 0.8 % (0.0-4.0); HEMATOCRIT 27.3 % (35.0-46.0); HEMOGLOBIN 9.2 GM/DL (11.6-15.3); LYMPH % 13.5 % (9.0-44.0); LYMPHOCYTE # 0.9 TH/MM3 (1.0-4.8); MEAN CELL VOLUME 97.5 FL (80.0-100.0); MEAN CORPUSCULAR HGB CONC 33.8 % (32.0-36.0); MONO % 8.8 % (0.0-8.0); MONOCYTE # 0.6 TH/MM3 (0-0.9); NEUT % 76.5 % (16.0-70.0); PLATELET COUNT 154 TH/MM3 (150-450); RED CELL DISTRIBUTION WIDTH 13.2 % (11.6-17.2); WHITE BLOOD COUNT 6.8 TH/MM3 (4.0-11.0)
[2017-11-03 03:26] LABS: INTERNATIONAL NORMALIZED RATIO 1.4 RATIO
[2017-11-03 03:41] LABS: BICARBONATE 27.2 MEQ/L (21.0-32.0); CALCIUM 8.4 MG/DL (8.5-10.1); CREATININE 0.42 MG/DL (0.50-1.00)
[2017-11-03 04:11] LABS: TROPONIN I 1.52 NG/ML (0.02-0.05)
[2017-11-03] MEDS ORDERED: HEPARIN SODIUM - IV 10,000 UNITS/10 ML VIAL IV PUSH PRN ×2 (08:00)
--- NOTE | 2017-11-03 08:27 | RADRPT ---
EXAM DATE/TIME: 11/03/2017 07:42 [place] COMPARISON: No previous studies available for comparison. INDICATIONS : Syncope. MEDICAL HISTORY : CHF. Cardiac disorders. SURGICAL HISTORY : None. ENCOUNTER: Initial ACUITY: 1 day PAIN SCORE: 8/10 LOCATION: Bilateral neck PEAK SYSTOLIC VELOCITIES (cm/sec): ICA/CCA RATIO: Right: 1.3 Left: 1.4 ICA: Right: 90.4 Left: 102.3 CCA: Right: 67.7 Left: 70.9 ECA: Right: 155.8 Left: 118.6 VERTEBRAL: Right: 43.4 antegrade Left: 47.8 antegrade Elevated flow velocities and ICA/CCA ratios have been found to correlate with increased degrees of vessel stenosis, calculated as percentage of diameter relative to a normal segment of distal ICA/CCA FINDINGS: RIGHT CAROTID: There is no evidence for a hemodynamically significant carotid stenosis. Minimal int imal hyperplasia is present with scattered calcific plaque. LEFT CAROTID: There is no evidence for a hemodynamically significant carotid stenosis. Minimal inti mal hyperplasia is present with scattered calcific plaque. VERTEBRAL ARTERIES: Flow is antegrade in both vertebral arteries. MISCELLANEOUS: There are no ancillary masses or adenopathy. CONCLUSION: Negative examination for a hemodynamically significant carotid stenosis. Board Certified Radiologist. This report was verified electronically.
[2017-11-03] MEDS: ATORVASTATIN 10 MG TAB PO SCH (09:00)
[2017-11-03] MEDS: DOCUSATE SODIUM 50 MG/SENNA 8.6 MG TAB PO SCH ×2 (09:00→21:00)
[2017-11-03] MEDS: PANTOPRAZOLE SOD 40 MG DELAYED RELEASE TAB PO SCH (09:00)
[2017-11-03] MEDS: SACUBITRIL/VALSARTAN 97 MG-103 MG TAB PO SCH ×2 (09:00→21:00)
[2017-11-03] MEDS: SODIUM CHLORIDE 0.9% FLUSH 10 ML FLUSH IV FLUSH SCH ×2 (09:00→21:00)
[2017-11-03] MEDS: CARVEDILOL 12.5 MG TAB PO SCH (09:00)
[2017-11-03] MEDS ORDERED: METOPROLOL TARTRATE 25 MG TAB PO SCH (09:45)
[2017-11-03] MEDS ORDERED: ASPIRIN 81 MG CHEW TAB CHEW ONE (09:45)
--- NOTE | 2017-11-03 11:06 | MB ---
cc: JEREMIAS RODRIGUES M.D. DATE OF CONSULTATION: 11/03/2017 REASON FOR CONSULTATION: Elevation of elevated troponin. HISTORY OF PRESENT ILLNESS: Carole Louis is a very complicated 81 year-old female, admitted to the hospital with orthopedic injuries but noted also to have a heart attack. Her cardiac history dates back to April of 2016 when she had congestive heart failure. At that time her ejection fraction was only 25 to 30% and she had mild aortic stenosis. She had mild to moderate tricuspid regurgitation and her right ventricular systolic pressure was markedly elevated at 61 mmHg. She had a LifeVest for a brief period of time. Her ejection fraction actually returned to normal in October of 2016. She had a nuclear stress test before that which showed only an old apical OK. Difficult to obtain a history of chest pain on her because she says she has severe arthritis and severe osteoporosis and she hurts all over. She has been telling her daughter that her ribs are broken raising suspicion about whether the rib pain is actually her cardiac pain. Yesterday she tripped and sustained significant orthopedic injuries as documented by Dr. Tate. They were requesting preoperative clearance but the troponin has risen from 0.65 to 1.57. Her left elbow has been in a 90 degree flexion position and her right arm is able to lay out straight. Her cardiac risk factors include previous smoking. She smoked at least ten years. She has hyperlipidemia. There is no obvious family history of coronary artery disease. She has had longstanding hypertension. She had temporal arteritis in 1993. PAST MEDICAL HISTORY: Previous CHF, hypertension, osteoarthritis, osteoporosis, previous temporal arteritis, gastroesophageal reflux disease, hyperlipidemia. PAST SURGICAL HISTORY: Negative. MEDICATIONS PRIOR TO ADMISSION: 1. Entresto 97/103 p.o. b.i.d. 2. Carvedilol 12.5 milligrams p.o. b.i.d. 3. Pantoprazole 40 mg daily. 4. Atorvastatin 10 mg daily 5. Furosemide 10 milligrams every other day. 6. Aspirin 81 milligrams daily. ALLERGIES: NONE KNOWN. SOCIAL HISTORY Notable for previous smoking. She quit apparently around 1994. PHYSICAL EXAMINATION: The physical exam reveals an elderly frail female. Vital signs: Charted. She has had some marked elevations of blood pressures as high as 184/88 when she first came in. She has ecchymosis, lacerations on her face. NECK: Bilateral bruits which I suspect is radiation of her cardiac murmur. CHEST: Clear anteriorly. She is not able to sit up. CARDIAC: S1-S2, regular rate and rhythm with an obvious 2/6 early aortic stenosis type murmur. ABDOMEN: Soft. EXTREMITIES: Reveal intact femoral pulses. Pedal pulses are palpable but do not feel strong. NEUROLOGIC: Alert, and oriented. EKG Her EKG yesterday showed sinus rhythm, really no acute ST-T wave changes. Synthroid EKGs are showing about 0.[address] depression in V6, T-wave inversion in aVL. T-wave has gone from upright to flatter, slightly inverted in lead 1. These changes could be interpreted as evolving ischemia. X-RAYS: Chest x-ray shows no acute disease. LABORATORY DATA: Her creatinine is 0.42, potassium is 3.5, hematocrit 27.3, creatinine has gone from 0.65, to 1.57 and 1.[address]. IM[address]ION Acute ST segment elevation OK. She appears somewhat frail. She has fallen and has significant orthopedic injuries in her left elbow. RECOMMENDATIONS I am going to resume her home cardiac medications and add nitro paste, keep her on aspirin. I am not going to add heparin at this point because of her injuries. I think it would be best if we did a diagnostic cardiac catheterization to define her anatomy. I am worried that she may have very critical disease, critical enough o have dropped her EF a obss-ynl-w-half ago but subsequently recovered so she might have left main or severe three vessel disease. She does not look to be a very good candidate for bypass, from that I could see right now. Certainly will have to look at that further. All this history was obtained in the presence of the daughter. I have answered all their questions. I am waiting for a stat echo and am contemplating doing a cath later today. MD VICKY Gould/MAIKEL /9:30 AM /10:32 AM
[2017-11-03] MEDS ORDERED: NITROGLYCERIN 2% OINT 1 GM PACKET TOPICAL SCH (12:00)
--- NOTE | 2017-11-03 12:26 | MB ---
cc: MICHELA PARADA DATE OF CONSULTATION: 11/03/2017. REASON FOR CONSULTATION: Left elbow and right wrist fracture. HISTORY OF PRESENT ILLNESS: The patient is an 81-year-old female who does not have significant problems with these areas in the past who had a mechanical fall. The patient slipped at a park and fell. She did not lose consciousness. The patient was found to have fractures as noted above and she had a laceration on the head, which was sutured. The patient while in x-ray had a syncopal episode and a Code Blue was called. They did find that there were some elevated troponins and this is being monitored. The patient was started apparently on a heparin drip per the nursing report to me. The patient has a history of congestive heart failure. She just recently had an echocardiogram and an ultrasound done of the carotids. Dr. Yogi Steven had just been in to see the patient right when I was interviewing the patient, and he is concerned about the patient having an acute myocardial infarction. REVIEW OF SYSTEMS: The review of systems was negative except as noted in the history of present illness. PAST MEDICAL HISTORY: The medical history is as above. PAST SURGICAL HISTORY: None. MEDICATIONS: See the chart. Note that she does take aspirin. ALLERGIES: NO KNOWN DRUG ALLERGIES. FAMILY HISTORY: Family history is noncontributory. PHYSICAL EXAMINATION: VITAL SIGNS: The patient's temperature is 97.7, pulse is 57, blood pressure is 151/72. GENERAL: She is Awake, alert and oriented times three. She has normal affect, insight and judgment. Her daughter is at the bedside. HEAD, EYES, EARS, NOSE, THROAT: The head shows a laceration over the right orbital region, which was sutured. Extraocular muscles intact. Oropharynx is moist. NECK: Her neck is supple. HEART: Regular rate and rhythm. LUNGS: Normal inspiratory effort with no labored breathing. No audible wheeze. EXTREMITIES: The right upper extremity is currently splinted. Fingers have some mild swelling. She has normal sensation distally. The left upper extremity is also splinted with a long-arm splint. Limited range of motion of the fingers. She has normal sensation about the fingertips with some mild swelling. The bilateral knees show just a little bit of swelling about the right knee with normal alignment about both knees. She can actively move the toes well on both sides. LABORATORY STUDIES: White cell count of 7.3, hematocrit of 32.3, platelet count of 192,000. Coagulations: INR is 1.4. Chemistries: Sodium is 133. I see concerning trends in the troponins from 0.65 to 1.57 and then 1.52. RADIOLOGICAL STUDIES: CT of the cervical spine showed no evidence of acute fracture by report. I reviewed the images and the reports for the left elbow and the right wrist and this shows that the patient has a mildly to moderately displaced olecranon fracture on the left side. The right side has an interarticular fracture in the volar aspect with mild displacement and mild displacement of the articular surface along with degenerative changes noted. There is comminution noted. Report of the x-rays of the left wrist show no fractures. Report of the x-rays of the right knee show no evidence of fracture. ASSESSMENT: 1. Left olecranon fracture mild to moderately displaced. 2. Right distal radius fracture, comminuted, interarticular with mild displacement of the articular surface. 3. Evidence of a likely acute myocardial infarction. DECISION-MAKING: Initially I had started talking to the patient about the options of surgical management for the left elbow, and we talked about the possible surgical management for the right wrist since if we were going to be in surgery it would make sense to reduce the wrist to help with earlier range of motion and reduce the chance of chronic pain due to interarticular displacement that was noted. Left elbow fracture generally would do better with fracture fixation because of the displacement. We talked about the risks and benefits of surgical management including injury to nerves, blood vessels, bleeding, infection, failure of hardware, need for re-operation, continued pain, loss of range of motion of associated joints, DVT, pulmonary embolus, pneumonia and . As we were finishing up our conversation, Dr. Steven came into the room and expressed that the patient is likely having an acute myocardial infarction, which ultimately significantly changes our treatment plan. He is very concerned this could be a very severe problem for this patient, acutely and chronically, and he is requiring likely intervention with a hard catheterization. At this point, we will not be moving forward with surgical management for either the left elbow or the right wrist due to more urgent medical conditions that could potentially be life-threatening. We will follow up with the patient over the next couple of days to see how she is doing, which could help us decide if we are going to be doing any other type of intervention. Thank you for allowing me to participate in the care of this patient. MD LUZ Pal/MIKHAIL /9:08 AM /11:55 AM
[2017-11-03] MEDS ORDERED: HEPARIN-NS/PF INJ 1,000 ML ONE (12:47)
[2017-11-03] MEDS ORDERED: MORPHINE SULFATE 8 MG/ML INJ ONE (12:50)
[2017-11-03] MEDS ORDERED: IOHEXOL 350 MG/ML 50 ML BTL (for Cath Lab) OTHER ONE (13:15)
[2017-11-03] MEDS ORDERED: MIDAZOLAM HCL 2 MG/2 ML VIAL ONE (13:19)
[2017-11-03] MEDS ORDERED: SODIUM CHLOR 0.9% 1000 ML INJ 1,000 ML IV SCH (13:56)
[2017-11-03] MEDS ORDERED: MISC INFORMATION XX ONE (14:00)
[2017-11-03] MEDS ORDERED: BACITRACIN OINT 0.9 GM PKT TOP ONE (14:00)
--- NOTE | 2017-11-03 14:13 | CATHPROC ---
[facility] HIS Report Study Information Study Number Admission Scheduled Start Study Start [id number] Nov 02 2017 7:12PM 11/03/2017 Nov 03 2017 12:17PM [place] [facility] Cardiac Catheterization Admit Source Facility Department Other [facility] Physician and Clinical Staff Initial Yogi Parra Hog Scalder Radha Rodriguez,RN Hog Scalder Layla Judge,LESLIE Recorder Radha Castellano,RT(R) ScrRadha DeckerRT(R) (BS) Procedures Performed Procedure Location (Site) Vessel Name L Heart Cath Wire insertion Fem Art (left) Femoral Art Equipment Time Statue Maker Description Size Mfg Part Number Used/Scraped TRANSDUCER, TRUWAVE [id number] 13:32 PHAM CORADO * Used W/STOCKCOCK *[id number] *[id number] *[id number] PIGTAIL ANG. 145 INFINITI 534-652S CATHETER *[id number] 13:32 MEDLINE INDUSTRIES PACK, CCL CUSTOM * Used *[id number] 13:32 Elepago PACER PEN, SKIN DUAL W/ RULER * Used *[id number] 13:32 Factor 14 MEDICAL SHEATH, FR6.5 PRELUDE 11CM FR 6.5 038ACT Used *[id number] 13:32 Factor 14 MEDICAL WIRE, 3MMJ .035 180CM 180CM Used *[id number] 13:32 NAMIC MANIFOLD, 4 PORT * Used *[id number] 13:32 NYCOMED OMNIPAQUE, 350 MG, 100ML 100ML [id number] Used 13:51 NYCOMED OMNIPAQUE, 350 MG, 150ML 150ML [id number] Used [id number] 13:32 Defixo MEDICAL BLANKET,WARM AIR CCL * Used *[id number] History: Allergies Allergy Reaction No Known Allergies History: Risk Factors Family History of Hypertension Dyslipidemia Previous MD Previous Heart Failure Premature CAD No Yes No No Yes Prior Valve Prior PCI Prior CABG Surgery No No No Cerebrovascular Peripheral Artery Chronic Lung On Dialysis Diabetes Disease Disease Disease No No No No No History: Stress Tests Stress or Imaging Studies Performed No History: Other Current Smoker Method Quit Packs a Day No Cigarettes 22 Years Ago 1 Labs Hgb (g/dl) Hct (%) RBC (MIL/MM3) WBC (l/cumm) Platelets (thousands) 11.60-17.00 35.00-51.00 4.00-5.90 4.00-11.00 150.00-450.00 9.2 27.3 2.8 6.8 154 Glucose (mg/dl) BUN (mg/dl) Creatinine (mg/dl) BUN:Creatinine (1:x) 74.00-106.00 7.00-18.00 0.50-1.30 10.00-20.00 111 6 0.4 15 Na (meq/l) K (meq/l) Cl (meq/l) CO2 (mmol/L) Ca (mg/dl) 136.00-145.00 3.50-5.10 98.00-107.00 21.00-32.00 8.50-10.10 133 3.5 99 27.2 8.4 PT (sec) PTT (sec) INR (PTT:PT) 9.80-11.60 24.30-30.10 0.90-1.10 14 36.2 1.4 Troponin I (ng/ml) CPK (u/l) CPK-MB (ng/ML) 0.02-0.05 26.00-308.00 0.50-3.60 1.5 99 Not Drawn Medication Medication Total Dose (Bolus/Oral) Medication Total Dosage/Unit 1% XYLOCAINE 40 mL MORPHINE 4 mg VERSED 1 mg Medications (Bolus/Oral) Medication Time Given Dosage/Unit Administered By Reason 11/03/2017 12:53:22 MORPHINE 4 mg Radha Rodriguez PM 4 mg MORPHINE given in lab by Radha Rodriguez, RN in Right Antecubital via Peripheral IV. VERSED 11/03/2017 1:19:15 PM 1 mg Radha Rodriguez 1 mg VERSED given in lab by Radha Rodriguez, LESLIE via Peripheral IV. 1% XYLOCAINE 11/03/2017 1:21:51 PM 20 mL Yogi Steven 20 mL 1% XYLOCAINE given in lab by Yogi Steven in Right Groin via Subcutaneous. 1% XYLOCAINE 11/03/2017 1:28:24 PM 20 mL Yogi Steven 20 mL 1% XYLOCAINE given in lab by Yogi Steven in Left Groin via Subcutaneous. Medication (Drip) Medication Time Given Dosage/Unit Concentration/Unit Diluent (ml) Solutio n 11/03/2017 12:59:34 IV Solutions 0 mL (IV) 1000 NaCl .9 PM Patient arrived on IV Solutions in Right Antecubital via Peripheral IV. Pump/Drip Flow = 20 ml/hr usi ng NaCl .9. Initial Case Assessment Cardiovascular HR Rhythm NIBP Chest Pain 56 gloria 137/56 0 Edema Present Skin color Skin None Normal Warm Circulatory - Right Pulses Dorsalis Pedis Femoral 2 3 Scale (0,1,2,3,4,d) Circulatory - Left Pulses Dorsalis Pedis Femoral 3 3 Scale (0,1,2,3,4,d) Circulatory - Lower Extremities Color Lower Right Color Lower Left Normal Normal Neurological State Oriented to time-place- Alert Moves all extremities person Respiration - General Respiration Rate SpO2 (%) O2 (lpm) (B/min) 19 100 2 Final Case Assessment Cardiovascular HR Rhythm NIBP Chest Pain 61 reg 134/60 0 Edema Present Skin color Skin None Normal Warm Circulatory - Right Pulses Dorsalis Pedis Femoral 2 3 Scale (0,1,2,3,4,d) Circulatory - Left Pulses Dorsalis Pedis Femoral 3 3 Scale (0,1,2,3,4,d) Circulatory - Lower Extremities Color Lower Right Color Lower Left Normal Normal Neurological State Oriented to time-place- Alert Moves all extremities person Respiration - General Respiration Rate SpO2 (%) O2 (lpm) (B/min) 11 97 2 Chronological Log Time Study Chronological Log 12:40:50 Patient arrived via Bed. 12:40:55 Patient Name, D.O.B, / Armband Verified By R.N. 12:40:56 Consent signed by the physician and the patient and verified by the [facility] staff. 12:40:57 Pre-op and post- op instructions given; patient acknowledges understanding of instructions. 12:40:58 Verbal Stimulation=2 Physical Stimulation=2 Airway=2 Respiration=2 TOTAL=8. (0=absent, 1=li mited, 2=present) 12:40:59 Patient has been NPO for Less than 6Hrs. 12:41:00 Skin Breakdown-bilat fx upper extremities. laceration left forehead and bruised on face and lip 12:45:54 discontinued heparin drip Vitals capture started with the following parameters, Patient=Adult, Interval=5 min, Initial Pr mbbeto=878 mmHg, 12:51:29 Deflation Rate=5 mmHg, Cuff placed on Left Arm 12:52:23 Vitals capture stopped. Vitals capture started with the following parameters, Patient=Adult, Interval=5 min, Initial Pr xpoiio=032 mmHg, 12:52:29 Deflation Rate=5 mmHg, Cuff placed on Left Arm 12:53:22 4 mg MORPHINE given in lab by Radha Rodriguez RN in Right Antecubital via Peripheral IV. 12:53:39 HR=57 bpm, JUVL=656/59 mmhg, MsI0=876.0 %, Pain=0, Qing=10, Allen=2 12:58:07 HR=55 bpm, YSHF=297/56 mmhg, KfA8=318.0 %, Resp=21 B/min, Pain=0, Qing=10, Allen=2 12:58:30 Reference ECG taken 12:59:27 A # 20 IV was noted in the Antecubital (right). Grade = 0 12:59:34 Patient arrived on IV Solutions in Right Antecubital via Peripheral IV. Pump/Drip Flow = 20 ml/hr using NaCl .9. 12:59:49 History and physical on the chart or being dictated. Assessment: Initial Case, HR=56 BPM, Rhythm=gloria, GJMM=494/56 mmhg, Chest Pain=0, Edema=None, Color=Normal, Skin = Warm Right Pulses: Ortega Ped=2, Femoral=3 Left Pulses: Ortega Ped=3, Femoral=3 12:59:50 Lower Right Extremities: Color=Normal Lower Left Extremities: Color=Normal Neurological: State=Alert, Ox3, STOKES Respiration: Resp=19 B/min, EpR9=005 %, O2=2 lpm 13:00:43 Bilateral groins prepped with 2% chlorhexidine, and draped after a 3 minute waiting time. 13:03:04 HR=56 bpm, MCUV=148/59 mmhg, KiS6=283.0 %, Resp=19 B/min, Pain=0, Qing=10, Allen=2 13:06:53 Pressure channel 1 zeroed. MD called 13:06:57 13:08:07 HR=56 bpm, HKJU=869/60 mmhg, AqI2=570.0 %, Resp=22 B/min, Pain=0, Qing=10, Allen=2 13:13:10 HR=56 bpm, LTQR=388/53 mmhg, SpO2=99.0 %, Resp=16 B/min, Pain=0, Qing=10, Allen=2 13:14:29 MD arrived. 13:18:03 HR=56 bpm, KZFV=698/59 mmhg, OzW5=008.0 %, Resp=17 B/min, Pain=0, Qing=10, Allen=2 Time Out. Correct patient, correct procedure, correct physician, power injector loaded with con trast with surgical team 13:18:21 present. Time Out Concurred by MD and individual staff in procedure. 13:18:31 Case Start 13:18:34 Verbal Stimulation=2 Physical Stimulation=2 Airway=2 Respiration=2 TOTAL=8. (0=absent, 1=li mited, 2=present) 13:19:15 1 mg VERSED given in lab by Radha Rodriguez, RN via Peripheral IV. 13:21:51 20 mL 1% XYLOCAINE given in lab by Yogi Steven in Right Groin via Subcutaneous. 13:23:08 HR=57 bpm, RPTO=717/48 mmhg, SuA7=720.0 %, Resp=17 B/min, Pain=0, Qing=10, Allen=2 13:28:03 HR=54 bpm, BEXH=482/51 mmhg, EsT8=891.0 %, Resp=6 B/min, Pain=0, Qing=10, Allen=2 13:28:24 20 mL 1% XYLOCAINE given in lab by Yogi Steven in Left Groin via Subcutaneous. 13:31:46 Access site was Left Femoral Artery. 13:31:51 A wire was inserted via Fem Art (left). 13:32:19 A SHEATH, FR6.5 PRELUDE 11CM FR 6.5 was advanced into the Fem Art (right) using the Percuta neous technique. 13:33:02 HR=59 bpm, SAQB=365/52 mmhg, MlR3=134.0 %, Resp=8 B/min, Pain=0, Qing=10, Allen=2 A PIGTAIL ANG. 145 INFINITI CATHETER FR 6 was advanced over a wire. OMNIPAQUE, 350 MG, 100ML 10 0ML was 13:33:22 used for injections. 13:34:39 Catheter was removed A JL 4.0 INFINITI CATHETER FR 6 was advanced over a wire. OMNIPAQUE, 350 MG, 100ML 100ML was us ed for 13:35:01 injections. Recorded Pressure: Ao, HR=58, Condition=Condition 1 13:36:51 (Aorta) Ao 118/36/70 13:38:05 HR=63 bpm, BBHW=410/48 mmhg, QeW6=298.0 %, Resp=11 B/min 13:39:23 Catheter was removed A 3DRC INFINITI CATHETER FR 6 was advanced over a wire. OMNIPAQUE, 350 MG, 100ML 100ML was used for 13:39:57 injections. 13:42:36 Catheter was removed 13:42:41 Activated Clotting Time Drawn 13:43:02 HR=65 bpm, HPRT=042/52 mmhg, GvD9=485.0 %, Resp=10 B/min, Pain=0, Qing=10, Allen=2 13:43:40 ACT (Normal Range 90-180) = 73 13:48:40 HR=60 bpm, JHJL=366/60 mmhg, SpO2=99.0 %, Resp=20 B/min, Pain=0, Qing=10, Allen=2 Assessment: Final Case, HR=61 BPM, Rhythm=reg, GUGR=802/60 mmhg, Chest Pain=0, Edema=None, Col or=Normal, Skin = Warm Right Pulses: Ortega Ped=2, Femoral=3 Left Pulses: Ortega Ped=3, Femoral=3 13:49:48 Lower Right Extremities: Color=Normal Lower Left Extremities: Color=Normal Neurological: State=Alert, Ox3, STOKES Respiration: Resp=11 B/min, SpO2=97 %, O2=2 lpm 13:50:30 Catheter(s) removed without difficulty 13:50:33 Sheath removed; pressure applied to access site. radha h RT 13:50:37 Case End 13:50:40 No case complications noted. 13:50:41 Cine recording checked. 13:50:43 Bedside Report will be given. 13:50:46 Contrast Scanned 13:51:00 A Left Heart Cath was performed. 13:53:06 HR=56 bpm, RIOR=677/59 mmhg, Resp=15 B/min, Pain=0, Qing=10, Allen=2 13:58:05 HR=56 bpm, VZXR=480/59 mmhg, Resp=17 B/min, Pain=0, Qing=10, Allen=2 14:03:07 HR=60 bpm, LQNP=527/62 mmhg, Resp=18 B/min, Pain=0, Qing=10, Allen=2 14:08:08 HR=55 bpm, OQZU=656/61 mmhg, SpO2=94.0 %, Resp=10 B/min, Pain=0, Qing=10, Allen=2 End Study - Contrast Media Used In Study Contrast Total Opened (mL) Total Used (mL) Total Wasted (mL) Omnipaque 40 40 0 End Study - Maximum Contrast Load Max Contrast Load (mL) 548.9 End Study - Radiation Exposure Fluoro Time (minutes) 3.9 End Study - Sheaths Sheaths Pulled By Sheath Hold Time (min) Yogi Steven End Study - Patient Disposition Complications Transferred To No Regular Bed
[2017-11-03] MEDS ORDERED: ATROPINE SULFATE 1 MG/10 ML SYRINGE ONE (15:14)
--- NOTE | 2017-11-03 15:22 | HHI.PR ---
Subjective Remarks just got back from cardiac cath- clean coronaries when I walked in - bradycardia- HR lowest in the 20s patient appears dazed BP 70/60 she did get IV Morphine during the cath procedure gave Atropine 0.5 mg IV stat- rate improved instruct nurse to inform Cardiology cancel transfer to floor informed family Objective Vitals Vital Signs Date Time Temp Pulse Resp B/P (MAP) Pulse Ox O2 Delivery O2 Flow Rate FiO2 11/03/17 12:00 98.0 60 12 147/67 (93) 88 11/03/17 08:00 98.1 59 18 94/47 (63) 99 11/03/17 04:00 98.0 69 16 120/58 (78) 95 11/03/17 00:04 80 11/03/17 00:00 98.1 78 18 117/63 (81) 98 11/02/17 21:00 18 11/02/17 20:45 97.7 57 16 151/72 (98) 95 11/02/17 20:33 11/02/17 19:15 73 18 159/71 (100) 94 Room Air 11/02/17 17:31 69 16 149/68 (95) 96 Room Air I/O 11/02/17 11/02/17 11/02/17 11/03/17 11/03/17 11/03/17 07:00 15:00 23:00 07:00 15:00 23:00 Intake Total 1240 ml 0 ml Balance 1240 ml 0 ml Intake Oral 240 ml 0 ml IV Total 1000 ml # Voids 1 Result Diagram: 11/03/17 0246 11/03/17 0246 Imaging Last Impressions Carotid Artery Ultrasound 11/03/17 0000 Signed Impressions: Service Date/Time: Friday, November 03, 2017 07:42 - CONCLUSION: Negative examination for a hemodynamically significant carotid stenosis. Board Certified Radiologist. This report was verified electronically. Wrist X-Ray 11/02/17 0000 Signed Impressions: Service Date/Time: Thursday, November 02, 2017 16:39 - CONCLUSION: No evidence of fracture the wrist. Kirby Melo MD Maxillofacial CT 11/02/17 0000 Signed Impressions: Service Date/Time: Thursday, November 02, 2017 17:44 - CONCLUSION: No evidence of fracture. Bilateral TMJ arthrosis noted. Kirby Melo MD Knee X-Ray 11/02/17 0000 Signed Impressions: Service Date/Time: Thursday, November 02, 2017 16:43 - CONCLUSION: 1. No evidence of fracture. 2. Small joint effusion. Kirby Melo MD Head CT 11/02/17 0000 Signed Impressions: Service Date/Time: Thursday, November 02, 2017 17:44 - CONCLUSION: No acute intracranial findings. Kirby Melo MD Elbow X-Ray 11/02/17 0000 Signed Impressions: Service Date/Time: Thursday, November 02, 2017 16:28 - CONCLUSION: Olecranon process fracture. Kirby Melo MD Chest X-Ray 11/02/17 0000 Signed Impressions: Service Date/Time: Thursday, November 02, 2017 17:17 - CONCLUSION: No acute cardiopulmonary disease identified. Kirby Melo MD Cervical Spine CT 11/02/17 0000 Signed Impressions: Service Date/Time: Thursday, November 02, 2017 17:44 - CONCLUSION: 1. No evidence of fracture. 2. 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 There is evidence of particularly prominent arthrosis at C1 to with superior migration of the C2 odontoid process (cranial settling). This finding can be seen with rheumatoid arthritis. 3. Mild central canal narrowing at C3-4 and C4-5. Kirby Melo MD Objective Remarks anicteric dry mouth neck supple no rales regular rhythm- HR improved 70s sinus abdomen=- soft, nontender extremities- Left elbow fracture- elastic dressing in place right wrist fracture- splint in place groin- cath site- no hematoma LE no edema Procedures 11/03- cardiac catheterization- clean coronaries A/P Assessment and Plan 81 years old female patient and family confirmed that she tripped or stumbled on something S/P Mechanical fall with Impacted intra-articular distal radius fracture of the right wrist/Left olecranon process fracture Orthopedic surgery consulted S/P cardiac cath for elevated troponin- clean coronaries EKG with LBBB pattern -Dr. Maurizio pierson Severe Bradycardia- post procedure- Acute HYpotension - reversed with Atropine 0.5 IV - S/P IV bolus - 500cc x 2 - monitor with history of CMP - Hold coreg - caution with IV pain meds- tylenol prn for pain for now CMP- not in clinical failure'History of hypertension Last ECHO done 04/2016, showed an EF of 25-30% Hold Lasix/coreg/Entresto for now with acute bradycardia and hypotension GERD/hyperlipidemia Continue home medications FEN NPO till fully awake NS at 50 cc/hr Electrolytes: NS for hyponatremia, follow up BMP Hold surgery till cleared by Cardiology Tatum Hale MD Nov 03, 2017 15:22
[2017-11-03] MEDS ORDERED: ATROPINE SULFATE 1 MG/ML VIAL IV PUSH ONE (15:30)
[2017-11-03] MEDS ORDERED: SODIUM CHLORID 0.9% 500 ML INJ 500 ML IV ONE (15:30)
[2017-11-03] MEDS: SODIUM CHLOR 0.9% 1000 ML INJ 1,000 ML IV SCH ×2 (15:41→21:47)
--- NOTE | 2017-11-03 15:48 | HHI.PR ---
Objective Vitals Vital Signs Date Time Temp Pulse Resp B/P (MAP) Pulse Ox O2 Delivery O2 Flow Rate FiO2 11/03/17 15:30 74 12 136/54 (81) 100 11/03/17 15:09 29 65/42 (50) 11/03/17 15:00 51 20 88/50 (63) 100 11/03/17 14:30 98.0 56 12 118/56 (76) 100 11/03/17 12:00 98.0 60 12 147/67 (93) 88 11/03/17 08:00 98.1 59 18 94/47 (63) 99 11/03/17 04:00 98.0 69 16 120/58 (78) 95 11/03/17 00:04 80 11/03/17 00:00 98.1 78 18 117/63 (81) 98 11/02/17 21:00 18 11/02/17 20:45 97.7 57 16 151/72 (98) 95 11/02/17 20:33 11/02/17 19:15 73 18 159/71 (100) 94 Room Air 11/02/17 17:31 69 16 149/68 (95) 96 Room Air I/O 11/02/17 11/02/17 11/02/17 11/03/17 11/03/17 11/03/17 07:00 15:00 23:00 07:00 15:00 23:00 Intake Total 1240 ml 0 ml Balance 1240 ml 0 ml Intake Oral 240 ml 0 ml IV Total 1000 ml # Voids 1 Result Diagram: 11/03/17 0246 11/03/17 0246 Tatum Hale MD Nov 03, 2017 15:48
--- NOTE | 2017-11-03 16:02 | HHI.PR ---
Addendum to Inpatient Note Addendum Reason: Additional Documentation Additional Information After patient was in her room post cath developed sudden drop in HR and BP - resolved with atropine 0.5mg IVP. EKG unchanged. ? vagal. Should probably not operate tomorrow - cont. to observe. Episode resolved after atropine/ back to baseline Yogi Steven MD Nov 03, 2017 16:01
--- NOTE | 2017-11-03 16:12 | MA ---
cc: JEREMIAS RODRIGUES DATE: 11/03/2017. BRIEF HISTORY: This is an 81-year-old female who came in with left elbow fracture and needed preoperative clearance but her troponins are markedly elevated. PROCEDURE PERFORMED: Coronary angiography. DESCRIPTION OF THE PROCEDURE IN DETAIL: The patient was brought to [facility] cardiac laboratory veterinarian in a fasting state. She received 1 of Versed and 4 of morphine for sedation. Using 1% lidocaine for local anesthesia under ultrasound guidance the sheath was placed in the right common femoral artery. Coronary angiography was completed using a left 4 Roberto Carlos for the left coronary artery and a 3DRC for the right coronary artery. The coronary arteries were normal. I tried to cross her aortic valve with a pigtail catheter. We know that she has mild to moderate aortic stenosis and the catheter would not cross. I would like to not do a formal valve study since I was certain she did not have severe aortic stenosis and therefore would be a candidate for surgery without further testing. ACT was okay so the sheath was pulled manually. There were no complications. FINDINGS: 1. Hemodynamics: The aortic pressure is 118/36 with a mean of 70. 2. Coronary angiography: The coronary circulation is left dominant. All three coronary arteries are large and normal in appearance. CONCLUSIONS: Normal coronary arteries. I do not see a contraindication for orthopedic surgery. PLAN: The patient is cleared for orthopedic surgery. MD VICKY Gould/MIKHAIL /1:41 PM /3:53 PM
--- NOTE | 2017-11-03 17:35 | ECHRPT ---
Indication: Heart Failure, eval EF CONCLUSIONS Normal left ventricular size. Mild concentric left ventricular hypertrophy. The left ventricular systolic function is normal with an estimated ejection fraction in the range of 55-60%. Mitral annular calcification is present. Trace mitral valve regurgitation. Mild aortic valve stenosis. Mild thickening of the aortic valve leaflets. Mild aortic valve regurgitation. BP: / HR: Rhythm: MEASUREMENTS (Male / Female) Normal Values Technical Quality:Good 2D ECHO LV Diastolic Diameter PLAX 4.3 cm 4.2 - 5.9 / 3.9 - 5.3 cm LV Systolic Diameter PLAX 3.1 cm IVS Diastolic Thickness 0.7 cm 0.6 - 1.0 / 0.6 - 0.9 cm LVPW Diastolic Thickness 0.6 cm 0.6 - 1.0 / 0.6 - 0.9 cm LV Relative Wall Thickness 0.3 LVOT Diameter 2.0 cm LA Systolic Diameter LX 3.1 cm 3.0 - 4.0 / 2.7 - 3.8 cm DOPPLER AV Peak Velocity 251.0 cm/s AV Peak Gradient 25.2 mmHg AV Mean Gradient 11.5 mmHg AV Velocity Time Integral 56.8 cm LVOT Peak Velocity 93.2 cm/s LVOT Peak Gradient 3.5 mmHg LVOT Velocity Time Integral 24.4 cm AV Area Cont Eq vti 1.3 cm AV Area Cont Eq pk 1.2 cm Mitral E Point Velocity 87.4 cm/s Mitral A Point Velocity 107.0 cm/s Mitral E to A Ratio 0.8 TR Peak Velocity 276.0 cm/s TR Peak Gradient 30.5 mmHg FINDINGS LEFT VENTRICLE Normal left ventricular size. Mild concentric left ventricular hypertrophy. The left ventricular systolic function is normal with an estimated ejection fraction in the range of 55-60%. RIGHT VENTRICLE Normal right ventricular size and systolic function. LEFT ATRIUM The left atrial size is normal. RIGHT ATRIUM The right atrial size is normal. ATRIAL SEPTUM Normal atrial septal thickness without atrial level shunting by limited color doppler interrogation. AORTA The aortic root and proximal ascending aorta are normal in size on limited imaging. MITRAL VALVE Mitral annular calcification is present. Trace mitral valve regurgitation. AORTIC VALVE Mild aortic valve stenosis. Mild thickening of the aortic valve leaflets. Mild aortic valve regurgitation. TRICUSPID VALVE Structurally normal tricuspid valve. No tricuspid valve stenosis or regurgitation. PULMONARY VALVE The pulmonary valve is not well visualized. VESSELS The inferior vena cava is normal in size. PERICARDIUM No pericardial effusion. Shan Millard MD, FACC (Electronically Signed) Final Date:03 November 2017 17:34
[2017-11-03 17:50] LABS: HEMATOCRIT 26.4 % (35.0-46.0); HEMOGLOBIN 9.1 GM/DL (11.6-15.3)
[2017-11-03] MEDS: ACETAMINOPHEN 325 MG TAB PO PRN (18:20)
--- NOTE | 2017-11-03 18:27 | EKG ---
Date Performed: 11/03/2017 Time Performed: 05:35:54 PTAGE: 81 years EKG: Sinus bradycardia with sinus arrhythmia Lateral ST-T changes are nonspecific Borderline ECG Compared to prior tracing no significant change DOCTOR: Shan Millard Interpretating Date/Time 11/03/2017 18:26:58
[2017-11-03 19:58] LABS: BILIRUBIN, URINE NEG (NEG); BLOOD, URINE NEG (NEG); GLUCOSE,URINE NEG (NEG); KETONE, URINE TRACE mg/dL (NEG); NITRITE,URINE NEG (NEG); PH, URINE 6.5 (5.0-8.5); SQUAMOUS EPITHELIAL CELL URINE <1 /hpf (0-5); URINE COLOR YELLOW (YELLW/STRAW); URINE LEUKOCYTE ESTERASE NEG (NEG)
--- NOTE | 2017-11-03 21:34 | EKG ---
Date Performed: 11/02/2017 Time Performed: 22:44:54 PTAGE: 81 years EKG: SINUS BRADYCARDIA WITH MARKED SINUS ARRHYTHMIA POSSIBLE ANTERIOR MYOCARDIAL INFARCTION , TX OBABLY OLD BORDERLINE ECG PREVIOUS TRACING : 11/02/2017 17.18 Compared to prior tracing no significant change DOCTOR: Shan Millard Interpretating Date/Time 11/03/2017 21:33:37
--- NOTE | 2017-11-03 22:03 | EKG ---
Date Performed: 11/02/2017 Time Performed: 17:18:38 PTAGE: 81 years EKG: Sinus rhythm NORMAL ECG PREVIOUS TRACING : 05/09/2016 23.49 Compared to prior tracing no significant change DOCTOR: Shan Millard Interpretating Date/Time 11/03/2017 22:02:48
[2017-11-03] MEDS: MORPHINE SULFATE 2 MG/ML INJ IV PUSH PRN (22:53)
[2017-11-04] VITALS (8 sets, daily range): BP systolic 92–142; BP diastolic 43–72; PULSE 61–69; RESP 16–19; TEMP 98.5–100.8; O2SAT 95–100
[2017-11-04] MEDS: MORPHINE SULFATE 2 MG/ML INJ IV PUSH PRN ×2 (05:35→09:00)
[2017-11-04 05:46] LABS: BASOPHIL % 0.4 % (0.0-2.0); EOSINOPHIL % 0.1 % (0.0-4.0); LYMPH % 8.4 % (9.0-44.0); LYMPHOCYTE # 0.6 TH/MM3 (1.0-4.8); MEAN CELL VOLUME 98.7 FL (80.0-100.0); MEAN CORPUSCULAR HEMOGLOBIN 32.9 PG (27.0-34.0); MEAN CORPUSCULAR HGB CONC 33.3 % (32.0-36.0); MEAN PLATELET VOLUME 8.8 FL (7.0-11.0); MONO % 10.3 % (0.0-8.0); MONOCYTE # 0.8 TH/MM3 (0-0.9); NEUT % 80.8 % (16.0-70.0); PLATELET COUNT 125 TH/MM3 (150-450); RED BLOOD COUNT 2.74 MIL/MM3 (4.00-5.30); RED CELL DISTRIBUTION WIDTH 13.6 % (11.6-17.2); WHITE BLOOD COUNT 7.4 TH/MM3 (4.0-11.0)
[2017-11-04 06:07] LABS: BICARBONATE 22.4 MEQ/L (21.0-32.0); CREATININE 0.36 MG/DL (0.50-1.00)
--- NOTE | 2017-11-04 07:42 | EKG ---
Date Performed: 11/03/2017 Time Performed: 15:26:20 PTAGE: 81 years EKG: Sinus rhythm Nonspecific ST/T changes Abnormal ECG PREVIOUS TRACING : 11/03/2017 05.35 No significant change from previous tracing noted. DOCTOR: Rahat Humphreys Interpretating Date/Time 11/04/2017 07:41:07
--- NOTE | 2017-11-04 08:11 | HHI.PR ---
Subjective Remarks awake and alert, interactive telemetry= sinus overnight- no episodes of bradycardia or hypotension complains of throbbing pain on both arms also back pain- chronic per family did received IV Morphine prn for pain overnight - tolerated well- no drop in BP or HR Objective Vitals Vital Signs Date Time Temp Pulse Resp B/P (MAP) Pulse Ox O2 Delivery O2 Flow Rate FiO2 11/04/17 04:00 100.8 66 16 137/64 (88) 100 11/04/17 00:00 100.8 67 16 122/57 (78) 98 11/03/17 20:30 Nasal Cannula 2.00 11/03/17 20:30 81 11/03/17 20:30 100.2 74 25 103/50 (67) 98 11/03/17 20:00 100.4 74 25 103/50 (67) 98 11/03/17 17:00 57 22 118/55 (76) 11/03/17 16:00 98.0 60 12 72/44 (53) 94 11/03/17 15:30 74 12 136/54 (81) 100 11/03/17 15:09 29 65/42 (50) 11/03/17 15:00 51 20 88/50 (63) 100 11/03/17 14:30 98.0 56 12 118/56 (76) 100 11/03/17 12:00 98.0 60 12 147/67 (93) 88 I/O 11/03/17 11/03/17 11/03/17 11/04/17 11/04/17 11/04/17 07:00 15:00 23:00 07:00 15:00 23:00 Intake Total 0 ml 600 ml 481 ml Output Total 500 ml 650 ml Balance 0 ml 100 ml -169 ml Intake Oral 0 ml 100 ml 60 ml IV Total 500 ml 421 ml Output Urine Total 500 ml 650 ml Stool Total 0 ml # Voids 1 # Bowel Movements 0 Result Diagram: 11/04/1752411/04/17524 Imaging Last Impressions Carotid Artery Ultrasound 11/03/17 0000 Signed Impressions: Service Date/Time: Friday, November 03, 2017 07:42 - CONCLUSION: Negative examination for a hemodynamically significant carotid stenosis. Board Certified Radiologist. This report was verified electronically. Wrist X-Ray 11/02/17 0000 Signed Impressions: Service Date/Time: Thursday, November 02, 2017 16:39 - CONCLUSION: No evidence of fracture the wrist. Kirby Melo MD Maxillofacial CT 11/02/17 0000 Signed Impressions: Service Date/Time: Thursday, November 02, 2017 17:44 - CONCLUSION: No evidence of fracture. Bilateral TMJ arthrosis noted. Kirby Melo MD Knee X-Ray 11/02/17 0000 Signed Impressions: Service Date/Time: Thursday, November 02, 2017 16:43 - CONCLUSION: 1. No evidence of fracture. 2. Small joint effusion. Kirby Melo MD Head CT 11/02/17 0000 Signed Impressions: Service Date/Time: Thursday, November 02, 2017 17:44 - CONCLUSION: No acute intracranial findings. Kirby Melo MD Elbow X-Ray 11/02/17 0000 Signed Impressions: Service Date/Time: Thursday, November 02, 2017 16:28 - CONCLUSION: Olecranon process fracture. Kirby Melo MD Chest X-Ray 11/02/17 0000 Signed Impressions: Service Date/Time: Thursday, November 02, 2017 17:17 - CONCLUSION: No acute cardiopulmonary disease identified. Kirby Melo MD Cervical Spine CT 11/02/17 0000 Signed Impressions: Service Date/Time: Thursday, November 02, 2017 17:44 - CONCLUSION: 1. No evidence of fracture. 2. 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 There is evidence of particularly prominent arthrosis at C1 to with superior migration of the C2 odontoid process (cranial settling). This finding can be seen with rheumatoid arthritis. 3. Mild central canal narrowing at C3-4 and C4-5. Kirby Melo MD Objective Remarks anicteric neck supple no rales regular rhythm-- sinus abdomen=- soft, nontender extremities- Left elbow fracture- elastic dressing in place right wrist fracture- splint in place groin- cath site- no hematoma LE no edema, no calf swelling Procedures 11/03- cardiac catheterization- clean coronaries Urinary Catheter: Yes Assessment to: Continue Story insert reason: Obstruction/Retention Date of Insertion: Nov 03, 2017 A/P Assessment and Plan 81 years old female patient and family confirmed that she tripped or stumbled on something S/P Mechanical fall with Impacted intra-articular distal radius fracture of the right wrist/Left olecranon process fracture -Orthopedic surgery ff -plan for eventual surgery when cleared by Cardiology - IV Morphine prn for pain - if no surgery today will write for po pain meds S/P cardiac cath for elevated troponin- clean coronaries Severe Bradycardia- post procedure- 11/03- resolved Acute HYpotension- post cath 11/03 resolved - no further episodes - resolved with Atropine and IVF - Cardiology ff History of CMP- not in clinical failure - last Echo done- showed an EF of 25-30%- repeat Echo done this admission - improved 55-60% - EKG with LBBB pattern - Cardiology ff - will reintroduce cardiac meds gradually - - at home was on Lasix, Coreg and Entresto - will start with Entresto 1/2 tab bid this if tolerated will go up to full 1 tab bid in pm history of GERD history of hyperlipidemia -Continue home medications HYpokalemia- give 10 meq KCL IV x 1 Advanced directives- no code Hold surgery till cleared by Cardiology Transfer to ortho floor with telemetry TEDs/SCDs start Lovenox start diet patient will be a good candidate and benefit from [facility] after surgery previous functional now with left elbow and right radial fracture - for eventual surgery consult Dr. Leal- d/w with her - placed routine consult Tatum Hale MD Nov 04, 2017 08:10
[2017-11-04] MEDS ORDERED: POTASSIUM CHLOR 10 MEQ PREMIX 100 ML IV ONE (08:45)
[2017-11-04] MEDS: PANTOPRAZOLE SOD 40 MG DELAYED RELEASE TAB PO SCH (08:59)
[2017-11-04] MEDS: ATORVASTATIN 10 MG TAB PO SCH ×2 (09:00→09:06)
[2017-11-04] MEDS ORDERED: SACUBITRIL/VALSARTAN 97 MG-103 MG TAB PO SCH (09:00)
[2017-11-04] MEDS: DOCUSATE SODIUM 50 MG/SENNA 8.6 MG TAB PO SCH ×2 (09:00→21:19)
[2017-11-04] MEDS ORDERED: FUROSEMIDE 20 MG TAB PO SCH (09:00)
[2017-11-04] MEDS: SODIUM CHLORIDE 0.9% FLUSH 10 ML FLUSH IV FLUSH SCH ×2 (09:01→21:17)
[2017-11-04] MEDS ORDERED: POTASSIUM CHLORIDE 20 MEQ CONTROLLED RELEASE TAB PO ONE (10:30)
[2017-11-04] MEDS: ACETAMINOPHEN 325 MG TAB PO PRN (10:35)
[2017-11-04] MEDS: ENOXAPARIN SODIUM 30 MG/0.3 ML SYRINGE SQ SCH (10:35)
--- NOTE | 2017-11-04 13:36 | PD.CARD.PN ---
Subjective Subjective Remarks Denies dizziness, CP, dyspnea, palpitations. Objective Medications Item Value Date Time Enoxaparin Sodium 30 mg 11/04/17 1100 (Lovenox Inj) Q24H/SQ 11/04/17 1035 Sacubitril/ 0.5 tab 11/04/17 0900 Valsartan BID/PO 11/04/17 0921 (Entresto 97-103 Mg) Atorvastatin 10 mg 11/03/17 0900 Calcium DAILY/PO 11/04/17 0906 (Lipitor) Current Medications Medications (Trade) Dose Ordered Sig/Maria [place] Carmen Route Start Time Stop Time Status Last Admin Sodium Chloride 1,000 ml @ 50 mls/hr Q20H IV 11/02/17 20:14 11/03/17 21:47 (NS Flush) 2 ml UNSCH PRN IV FLUSH 11/02/17 20:15 (NS Flush) 2 ml BID IV FLUSH 11/02/17 21:00 11/04/17 09:01 (Tylenol) 650 mg Q4H PRN PO 11/02/17 20:15 11/04/17 10:35 (Zofran Inj) 4 mg Q6H PRN IVP 11/02/17 20:15 (Narcan Inj) 0.4 mg UNSCH PRN IV PUSH 11/02/17 20:15 (Sharon-Colace) 1 tab BID PO 11/02/17 21:00 11/04/17 09:00 (Milk Of Magnesia Liq) 30 ml Q12H PRN PO 11/02/17 20:15 (Senokot) 17.2 mg Q12H PRN PO 11/02/17 20:15 (Dulcolax Supp) 10 mg DAILY PRN RECTAL 11/02/17 20:15 (Lactulose Liq) 30 ml DAILY PRN PO 11/02/17 20:15 (Lipitor) 10 mg DAILY PO 11/03/17 09:00 11/04/17 09:06 (Protonix) 40 mg DAILY PO 11/03/17 09:00 11/04/17 08:59 Lactated Ringer's 1,000 ml @ 30 mls/hr Q24H PRN IV 11/02/17 21:00 11/05/17 20:59 Sodium Chloride 500 ml @ 30 mls/hr [id number] PRN IV 11/02/17 21:00 11/05/17 20:59 (Lopressor) 25 mg HYPERION ADMINISTRATOR PRN PO 11/02/17 21:15 11/05/17 21:14 (Betadine 5% Antisepsis Kit) 1 applic HYPERION ADMINISTRATOR PRN EACH NARE 11/02/17 21:15 11/05/17 21:14 (Chlorhexidine 2% Cloth) 3 pack HYPERION ADMINISTRATOR PRN TOPICAL 11/02/17 21:15 11/05/17 21:14 (Entresto 97-103 Mg) 0.5 tab BID PO 11/04/17 09:00 11/04/17 09:21 (Lovenox Inj) 30 mg Q24H SQ 11/04/17 11:00 11/04/17 10:35 (Morphine Inj) 1 mg Q4HR PRN IV PUSH 11/04/17 11:00 (Percocet 5-325 Mg) 1 tab Q6H PRN PO 11/04/17 10:45 Vital Signs / I&O Vital Signs Date Time Temp Pulse Resp B/P (MAP) Pulse Ox O2 Delivery O2 Flow Rate FiO2 11/04/17 08:00 99.2 69 19 141/61 (87) 99 11/04/17 07:00 96 Nasal Cannula 2.00 11/04/17 04:00 100.8 66 16 137/64 (88) 100 11/04/17 00:00 100.8 67 16 122/57 (78) 98 11/03/17 20:30 Nasal Cannula 2.00 11/03/17 20:30 81 11/03/17 20:30 100.2 74 25 103/50 (67) 98 11/03/17 20:00 100.4 74 25 103/50 (67) 98 11/03/17 17:00 57 22 118/55 (76) 11/03/17 16:00 98.0 60 12 72/44 (53) 94 11/03/17 15:30 74 12 136/54 (81) 100 11/03/17 15:09 29 65/42 (50) 11/03/17 15:00 51 20 88/50 (63) 100 11/03/17 14:30 98.0 56 12 118/56 (76) 100 I/O 12/24/17 12/11/03/17 11/04/17 11/04/17 11/04/17 07:00 15:00 23:00 07:00 15:00 23:00 Intake Total 0 ml 600 ml 481 ml Output Total 500 ml 650 ml Balance 0 ml 100 ml -169 ml Intake Oral 0 ml 100 ml 60 ml IV Total 500 ml 421 ml Output Urine Total 500 ml 650 ml Stool Total 0 ml # Voids 1 # Bowel Movements 0 Physical Exam GENERAL: Well developed, well nourished. No acute distress. HEENT: Jugular venous pressure is normal. CHEST: Lungs clear to auscultation anteriorly. CARDIAC: Regular rate and rhythm without S3, S4. I/ YOGESH LUSB ABDOMEN: Soft, nontender, no hepatosplenomegaly. Bowel sounds present. EXTREMITIES: No clubbing, cyanosis, or edema. Laboratory Laboratory Tests Test 11/03/17 17:28 11/03/17 18:00 11/04/17 05:25 Hemoglobin 9.1 GM/DL 9.0 GM/DL Hematocrit 26.4 % 27.0 % Urine Color YELLOW Urine Turbidity CLEAR Urine pH 6.5 Urine Specific [place] 1.013 Urine Protein NEG mg/dL Urine Glucose (UA) NEG mg/dL Urine Ketones TRACE mg/dL Urine Occult Blood NEG Urine Nitrite NEG Urine Bilirubin NEG Urine Urobilinogen LESS THAN 2.0 MG/DL Urine Leukocyte Esterase NEG Urine RBC LESS THAN 1 /hpf Urine WBC LESS THAN 1 /hpf Urine Squamous Epithelial Cells <1 /hpf Microscopic Urinalysis Comment White Blood Count 7.4 TH/MM3 Red Blood Count 2.74 MIL/MM3 Mean Corpuscular Volume 98.7 FL Mean Corpuscular Hemoglobin 32.9 PG Mean Corpuscular Hemoglobin Concent 33.3 % Red Cell Distribution Width 13.6 % Platelet Count 125 TH/MM3 Mean Platelet Volume 8.8 FL Neutrophils (%) (Auto) 80.8 % Lymphocytes (%) (Auto) 8.4 % Monocytes (%) (Auto) 10.3 % Eosinophils (%) (Auto) 0.1 % Basophils (%) (Auto) 0.4 % Neutrophils # (Auto) 6.0 TH/MM3 Lymphocytes # (Auto) 0.6 TH/MM3 Monocytes # (Auto) 0.8 TH/MM3 Eosinophils # (Auto) 0.0 TH/MM3 Basophils # (Auto) 0.0 TH/MM3 CBC Comment DIFF FINAL Differential Comment Blood Urea Nitrogen 6 MG/DL Creatinine 0.36 MG/DL Random Glucose 116 MG/DL Calcium Level 8.0 MG/DL Sodium Level 136 MEQ/L Potassium Level 3.5 MEQ/L Chloride Level 106 MEQ/L Carbon Dioxide Level 22.4 MEQ/L Anion Gap 8 MEQ/L Estimat Glomerular Filtration Rate 172 ML/MIN Assessment and Plan Problem List: (1) Elevated troponin ICD Codes: R79.89 - Other specified abnormal findings of blood chemistry Status: Acute Plan: Cardiac status stable. Cath reportedly shows unremarkable coronary arteries. EF normal by echo. Patient cleared for orthopedic surgery. Will f /u as needed. (2) Hypotension ICD Codes: I95.9 - Hypotension, unspecified Status: Acute Plan: No further problems with hypotension, bradycardia. May have had vasovagal mediated event. (3) Cardiomyopathy ICD Codes: I42.9 - Cardiomyopathy, unspecified Status: Resolved Plan: EF reportedly 25-30% by echo 2016 now EF 55-60% by echo. Rec continue Entresto, resume her carvedilol. Code Status No code Discussed Condition With patient Problem Qualifiers (1) Hypotension: Qualified Codes: I95.9 - Hypotension, unspecified (2) Cardiomyopathy: Qualified Codes: I42.8 - Other cardiomyopathies Rahat Humphreys MD Nov 04, 2017 13:36
--- NOTE | 2017-11-04 15:18 | PD.ORT.PN ---
Subjective Subjective Remarks no new issues. pending cards clearance for surgery. no CP/SOB Objective Vitals Vital Signs Date Time Temp Pulse Resp B/P (MAP) Pulse Ox O2 Delivery O2 Flow Rate FiO2 11/04/17 12:00 98.6 66 18 92/43 (59) 96 11/04/17 08:00 99.2 69 19 141/61 (87) 99 11/04/17 07:00 96 Nasal Cannula 2.00 11/04/17 04:00 100.8 66 16 137/64 (88) 100 11/04/17 00:00 100.8 67 16 122/57 (78) 98 11/03/17 20:30 Nasal Cannula 2.00 11/03/17 20:30 81 11/03/17 20:30 100.2 74 25 103/50 (67) 98 11/03/17 20:00 100.4 74 25 103/50 (67) 98 11/03/17 17:00 57 22 118/55 (76) 11/03/17 16:00 98.0 60 12 72/44 (53) 94 11/03/17 15:30 74 12 136/54 (81) 100 I/O 11/03/17 11/03/17 11/03/17 11/04/17 11/04/17 11/04/17 07:00 15:00 23:00 07:00 15:00 23:00 Intake Total 0 ml 600 ml 481 ml Output Total 500 ml 650 ml Balance 0 ml 100 ml -169 ml Intake Oral 0 ml 100 ml 60 ml IV Total 500 ml 421 ml Output Urine Total 500 ml 650 ml Stool Total 0 ml # Voids 1 # Bowel Movements 0 Result Diagram: 11/04/1725 11/04/17 0525 Objective Remarks Alert awake and oriented x 3. No acute distress. Pulmonary: Normal respiratory effort. Right upper extremity exam: splint in place. 2+ radial artery pulses. Good cap refill. hand and finger swelling LUE: Neurovascularly intact, splint in place. 2+ radial artery pulses. Good cap refill. Assessment & Plan Assessment and Plan Left elbow and right wrist fractures. No new issues. Patient awaiting cardiac clearance for surgical intervention. Dr. Tate to follow-up tomorrow. Carlos Kauffman Jr., MD Nov 04, 2017 15:18
[2017-11-04] MEDS: oxyCODONE/ACETAMINOPHEN 5 MG/325 MG TAB PO PRN ×2 (16:00→23:57)
--- NOTE | 2017-11-04 18:13 | HHI.PR ---
Addendum to Inpatient Note Addendum Reason: Additional Documentation Additional Information sterile strips left forehead- dry some multiple dry superficial wounds on nose and upper lip- Bacitracin bid to areas Tatum Hale MD Nov 04, 2017 18:13
[2017-11-04] MEDS: BACITRACIN TOP OINT 15 GM TUBE TOPICAL SCH ×2 (18:15→23:57)
[2017-11-04] MEDS: ONDANSETRON HCL 4 MG/2 ML VIAL IVP PRN (18:42)
[2017-11-04] MEDS: CARVEDILOL 12.5 MG TAB PO SCH (21:19)
[2017-11-04] MEDS: SACUBITRIL/VALSARTAN 97 MG-103 MG TAB PO SCH (21:19)
[2017-11-05] VITALS (9 sets, daily range): BP systolic 101–148; BP diastolic 46–72; PULSE 51–76; RESP 17–18; TEMP 96.7–99.8; O2SAT 92–96
[2017-11-05] MEDS ORDERED: SODIUM CHLORID 0.9% 500 ML IV PRN (02:00)
[2017-11-05] MEDS ORDERED: POVIDONE IODINE 5% (ANTISEPSIS KIT) 4 APPLICATIONS EACH NARE PRN (02:00)
[2017-11-05] MEDS ORDERED: LACTATED RINGER'S 1000 ML IV PRN (02:00)
[2017-11-05] MEDS ORDERED: CHLORHEXIDINE GLUCONATE 2 % 1 PACK (2 CLOTHS) TOPICAL PRN (02:00)
[2017-11-05] MEDS: BACITRACIN TOP OINT 15 GM TUBE TOPICAL SCH ×2 (05:58→14:00)
[2017-11-05] MEDS: SODIUM CHLOR 0.9% 1000 ML INJ 1,000 ML IV SCH (08:57)
[2017-11-05] MEDS: MORPHINE SULFATE 2 MG/ML INJ IV PUSH PRN ×3 (08:57→23:10)
[2017-11-05] MEDS: ATORVASTATIN 10 MG TAB PO SCH (08:58)
[2017-11-05] MEDS: SACUBITRIL/VALSARTAN 97 MG-103 MG TAB PO SCH (08:58)
[2017-11-05] MEDS: CARVEDILOL 12.5 MG TAB PO SCH ×2 (08:58→23:10)
[2017-11-05] MEDS: SODIUM CHLORIDE 0.9% FLUSH 10 ML FLUSH IV FLUSH SCH (08:58)
[2017-11-05] MEDS: DOCUSATE SODIUM 50 MG/SENNA 8.6 MG TAB PO SCH (08:59)
[2017-11-05] MEDS: PANTOPRAZOLE SOD 40 MG DELAYED RELEASE TAB PO SCH (08:59)
[2017-11-05] MEDS: ENOXAPARIN SODIUM 30 MG/0.3 ML SYRINGE SQ SCH (09:37)
[2017-11-05] MEDS ORDERED: LACTATED RINGER'S 1000 ML INJ 1,000 ML IV ONE (12:00)
[2017-11-05] MEDS ORDERED: PROPOFOL 200 MG/20 ML AMP IV ONE (12:00)
[2017-11-05] MEDS ORDERED: ROCURONIUM INJ 50 MG/5 ML SYRINGE IV PUSH ONE (12:00)
[2017-11-05] MEDS ORDERED: LIDOCAINE HCL 1% PF 5 ML SYRINGE OTHER ONE (12:00)
[2017-11-05] MEDS ORDERED: ONDANSETRON HCL 4 MG/2 ML VIAL IV PUSH ONE (12:00)
[2017-11-05] MEDS ORDERED: GLYCOPYRROLATE 1 MG/5 ML SYRINGE IV PUSH ONE (12:00)
[2017-11-05] MEDS ORDERED: ePHEDrine/NS 25 MG/5 ML SYRINGE IV ONE (12:00)
[2017-11-05] MEDS ORDERED: PHENYLEPH/NS 1000 MCG/10 ML SYR IV ONE (12:00)
[2017-11-05] MEDS ORDERED: NEOSTIGMINE 5 MG/5 ML SYRINGE IV PUSH ONE (12:00)
--- NOTE | 2017-11-05 13:03 | HHI.PR ---
Subjective Remarks Patient seen and evaluated today in follow-up for wrist fractures and bradycardia. No new complaints. Surgical plans discussed with patient and with family member at bedside. Cardiovascular the patient and she is expected to go to the OR later this afternoon Objective Vitals Vital Signs Date Time Temp Pulse Resp B/P (MAP) Pulse Ox O2 Delivery O2 Flow Rate FiO2 11/05/17 12:00 99.4 66 17 108/50 (69) 92 11/05/17 09:38 69 11/05/17 08:00 99.6 63 17 118/53 (74) 96 11/05/17 04:12 96.7 72 18 119/72 (88) 93 11/05/17 03:46 61 11/05/17 00:33 97.3 70 18 101/46 (64) 92 11/04/17 23:45 61 11/04/17 21:20 Room Air 11/04/17 19:46 67 11/04/17 19:34 98.5 64 18 116/64 (81) 96 11/04/17 16:00 98.6 66 18 142/72 (95) 95 I/O 11/04/17 11/04/17 11/04/17 11/05/17 11/05/17 11/05/17 06:59 14:59 22:59 06:59 14:59 22:59 Intake Total 481 ml 943 ml 0 ml Output Total 650 ml 700 ml 300 ml Balance -169 ml 243 ml -300 ml Intake Oral 60 ml 360 ml 0 ml IV Total 421 ml 583 ml Output Urine Total 650 ml 700 ml 300 ml # Bowel Movements 0 0 0 Result Diagram: 11/04/1752411/04/17524 Objective Remarks Skin with multiple facial lacerations and abrasions GENERAL: This is a well-nourished, well-developed patient, in no apparent distress. CARDIOVASCULAR: Regular rate and rhythm without murmurs, gallops, or rubs. RESPIRATORY: Clear to auscultation. Breath sounds equal bilaterally. No wheezes , rales, or rhonchi. GASTROINTESTINAL: Abdomen soft, non-tender, nondistended. Normal active bowel sounds MUSCULOSKELETAL: Bilateral upper extremity are dressed, lower Extremities without clubbing, cyanosis, or edema. NEURO: Alert & Oriented x4 to person, place, time, situation. Moves all ext x4 Procedures 11/03- cardiac catheterization- clean coronaries Date of Insertion: Nov 03, 2017 A/P Problem List: (1) Episode of syncope ICD Code: R55 - Syncope and collapse Status: Acute Plan: Continue with rehabilitation efforts, cardiology investigations are negative, no evidence of seizures (2) Wrist fracture ICD Code: S62.109A - Fracture of unspecified carpal bone, unspecified wrist, initial encounter for closed fracture Status: Acute Plan: Patient with elbow and wrist fractures needing surgical treatment Cleared by cardiology, to the OR this afternoon per orthopedics Discharge Planning pending postop management, discharged to rehabilitation Problem Qualifiers (1) Episode of syncope: Qualified Codes: R55 - Syncope and collapse (2) Wrist fracture: Qualified Codes: S62.101A - Fracture of unspecified carpal bone, right wrist, initial encounter for closed fracture Gladis Bain MD Nov 05, 2017 13:03
[2017-11-05] MEDS ORDERED: NORC5TAB PO (17:24)
[2017-11-05] MEDS ORDERED: BUPIVACAINE/EPINEPHRINE 0.25% PF 30 ML VIAL ONE (17:30)
[2017-11-05] MEDS ORDERED: GENTAMICIN SULFATE 80 MG/2 ML VIAL ONE (17:31)
[2017-11-05] MEDS ORDERED: ceFAZolin INJ 1,000 MG VIAL ONE (17:31)
[2017-11-05] MEDS ORDERED: BUPIVACAINE HCL PF 0.5% 30 ML VIAL ONE (17:31)
[2017-11-05] MEDS ORDERED: NEOMYCIN/POLYMYXIN 1 ML G.U. IRRIGANT ONE (17:32)
[2017-11-05] MEDS ORDERED: ZOLPIDEM TARTRATE 5 MG TAB PO PRN (19:45)
[2017-11-05] MEDS: LACTATED RINGER'S 1000 ML INJ 1,000 ML IV SCH (19:45)
[2017-11-05] MEDS ORDERED: SODIUM CHLORIDE 0.9% FLUSH 10 ML FLUSH IV FLUSH PRN (19:45)
[2017-11-05] MEDS ORDERED: ONDANSETRON HCL 4 MG/2 ML VIAL IV PUSH PRN (19:45)
[2017-11-05] MEDS ORDERED: ENOXAPARIN SODIUM 30 MG/0.3 ML SYRINGE SQ SCH (19:45)
[2017-11-05] MEDS ORDERED: oxyCODONE/ACETAMINOPHEN 5 MG/325 MG TAB PO PRN (19:45)
--- NOTE | 2017-11-05 21:08 | PD.OP ---
cc: Carlos Kauffman Jr., MD Operative Report Date of Surgery: Nov 05, 2017 Preoperative Diagnosis: #1 left displaced olecranon fracture #2 right distal radius fracture Postoperative Diagnosis: Same Procedure: #1 open reduction and fixation left olecranon #2 open reduction internal fixation right distal radius Anesthesia: Gen. Surgeon: Carlos Kauffman Supervisor Audit Clerks(s): NOMAN Sanders The surgical procedure was assisted by my Advanced Registered Nurse Practitioner. My COMMAND AND CONTROL SPECIALIST presence was necessary throughout this case for the manipulation and positioning of the surgical extremity. My COMMAND AND CONTROL SPECIALIST was assisting me throughout the duration of this procedure. The skill set of an Advance Registered Nurse Practitioner was medically necessary to complete this procedure. During the surgical case, the nuclear reactor technician was working at the back table and the Advance Registered Nurse Practitioner was directly assisting me. Resident Surgeon: None Operation and Findings: Patient was seen and evaluated preoperatively and found to have a displaced LEFT olecranon and RIGHT distal radius fracture. Informed consent was obtained after detailed discussion of risk and benefits including bleeding, infection, injury to arteries, nerves, and blood vessels, weakness and numbness of hand, and tendon rupture. Informed consent was obtained. Patient received IV antibiotics prior to incision. Timeout procedure was performed. Operative extremities were prepped with alcohol followed by Hibiclens and draped usual sterile fashion. LEFT OLECRANON A standard direct posterior approch to the olecranon was performed. Dissection taken down to the olecranon process and then distal to the proximal shaft. A transverse comminuted displaced olecranon fracture was identified.The ulnar nerve was identified in the groove and was kept in direct visualization and protected throughout the entire procedure. The fracture site was now visualized. The fracture ends were sharply debrided and cleaned. The articular surface was reduced. Fracture fragments were manipulated to achieve excellent reduction. K wires were used to hold provisional fixation. Fluoroscopy confirmed appropriate alignment of fracture. A Synthes olecranon plate was selected . Plate was provisionally fixed to bone with K wires. 2.7 screws and 3.5 cortical screws were used to compress plate to bone. Fluoroscopy confirmed appropriate alignment of fracture with well-placed hardware. Additional screws were now placed. Screws were predrilled and measured for appropriate length. K wires were removed. Final fluoroscopy revealed excellent reduction of fracture with well-placed hardware. The wound was thoroughly irrigated with sterile saline. Subcutaneous tissue was closed with 2-0 vicryl, 3-0 Vicryl and skin was closed with vanesa RIGHT DISTAL RADIUS A standard volar approach to the distal radius was utilized. A 3 inch incision was made over the FCR tendon. Tendon sheath was opened. Pronator quadratus was elevated up. The fracture site was now visualized. The fracture did not have intra-articular extension. Traction was applied. The articular surface was reduced. Fracture fragments were manipulated to achieve excellent reduction. K wires were used to hold provisional fixation. Fluoroscopy confirmed appropriate alignment of fracture. A Synthes 2 column variable angle distal radius plate was selected. Plate was provisionally fixed to bone with K wires. cortical screws were used to compress plate to bone. Fluoroscopy confirmed appropriate alignment of fracture with well-placed hardware. Multiple 2.4 locking screws were now placed distally. Screws were predrilled and measured for appropriate length. 1 additional screws were placed into the shaft. K wires were removed. Final fluoroscopy revealed excellent of fracture with well-placed hardware. The wound was thoroughly irrigated with sterile saline. Subcutaneous tissue was closed with 3-0 Vicryl and skin was closed with 3-0 nylon. Sterile dressings were applied with Xeroform, 4 x 4, soft roll , and a well padded volar splint. Patient was awakened and transferred to recovery room in stable condition IMPLANTS USED Synthes POSTP-OP PLAN OF ACTIVITY Antibiotics: Ancef Antiocoagulation: Lovenox, up to primary care discretion at dc Weight bearing status: NWB Dressing: Change none Dispo: expected discharge SNF likely Carlos Kauffman Jr., MD Nov 05, 2017 21:08
--- NOTE | 2017-11-05 21:50 | RADRPT ---
EXAM DATE/TIME: 11/05/2017 21:01 [facility] COMPARISON: No previous studies available for comparison. INDICATIONS : ORIF of the left elbow. MEDICAL HISTORY : Cardiovascular disease. Congestive heart failure SURGICAL HISTORY : None. ENCOUNTER: Subsequent ACUITY: 3 days PAIN SCORE: Non-responsive. LOCATION: Left upper extremity FINDINGS: AP and lateral views in the operating room show posterior screw and plate fixation of the olecranon f racture. Alignment is near-anatomic. No new fracture or other acute complication. CONCLUSION: Interim open reduction internal fixation of olecranon fracture into normal alignment. No acute compli cation demonstrated. Harlan Lee MD on November 05, 2017 at 21:48 Board Certified Radiologist. This report was verified electronically.
--- NOTE | 2017-11-05 21:51 | RADRPT ---
EXAM DATE/TIME: 11/05/2017 20:35 [facility] COMPARISON: WRIST RIGHT COMPLETE ([id number]), November 02, 2017, 16:50. INDICATIONS : ORIF of the right wrist. MEDICAL HISTORY : CHF. Cardiac disorders SURGICAL HISTORY : None. ENCOUNTER: Subsequent ACUITY: 3 days PAIN SCORE: Non-responsive. LOCATION: Right upper extremity FINDINGS: Interim open reduction internal fixation of the comminuted distal radial fracture. Instrumentation co nsists of a volar plate and at least 6 screws. Alignment appears normal. No subluxations or new fract ures are demonstrated. CONCLUSION: Screw and plate fixation of comminuted distal radial fracture into near-anatomic alignment. No acute complication demonstrated. Harlan Lee MD on November 05, 2017 at 21:48 Board Certified Radiologist. This report was verified electronically.
[2017-11-05] MEDS ORDERED: DO NOT ADM ANY ANTICOAGULANT DRUGS PRN (22:01)
[2017-11-05] MEDS ORDERED: ACETAMINOPHEN 1000 MG/100 ML 100 ML IV ONE (22:07)
[2017-11-05] MEDS: ONDANSETRON HCL 4 MG/2 ML VIAL IVP PRN (22:28)
[2017-11-06] MEDS: oxyCODONE/ACETAMINOPHEN 5 MG/325 MG TAB PO PRN ×4 (02:20→21:03)
[2017-11-06 04:04] VITALS: BP 109/50; PULSE 66; RESP 18; TEMP 97.4; O2SAT 97
[2017-11-06] MEDS: SODIUM CHLOR 0.9% 1000 ML INJ 1,000 ML IV SCH (04:14)
[2017-11-06] MEDS: LACTATED RINGER'S 1000 ML INJ 1,000 ML IV SCH ×2 (07:11→15:45)
[2017-11-06] MEDS: BACITRACIN TOP OINT 15 GM TUBE TOPICAL SCH ×3 (07:13→20:54)
[2017-11-06 08:00] VITALS: BP 132/56; PULSE 63; RESP 17; TEMP 97.1; O2SAT 98
[2017-11-06] MEDS: SODIUM CHLORIDE 0.9% FLUSH 10 ML FLUSH IV FLUSH SCH ×3 (09:00→20:54)
[2017-11-06] MEDS: DOCUSATE SODIUM 50 MG/SENNA 8.6 MG TAB PO SCH ×2 (09:08→20:54)
[2017-11-06] MEDS: DOCUSATE SODIUM 100 MG CAP PO SCH ×2 (09:08→20:54)
[2017-11-06] MEDS: ATORVASTATIN 10 MG TAB PO SCH (09:09)
[2017-11-06] MEDS: PANTOPRAZOLE SOD 40 MG DELAYED RELEASE TAB PO SCH (09:09)
[2017-11-06] MEDS: SACUBITRIL/VALSARTAN 97 MG-103 MG TAB PO SCH ×2 (09:09→20:54)
[2017-11-06] MEDS: CARVEDILOL 12.5 MG TAB PO SCH ×2 (09:09→20:54)
[2017-11-06 09:43] VITALS: O2SAT 97
[2017-11-06] MEDS: ENOXAPARIN SODIUM 30 MG/0.3 ML SYRINGE SQ SCH (10:54)
--- NOTE | 2017-11-06 11:57 | HHI.PR ---
Subjective Remarks Patient seen and evaluated today in follow-up for left elbow and right wrist fractures. Today status post repair. Pain is moderately controlled. Objective Vitals Vital Signs Date Time Temp Pulse Resp B/P (MAP) Pulse Ox O2 Delivery O2 Flow Rate FiO2 11/06/17 09:43 97 11/06/17 08:00 97.1 63 17 132/56 (81) 98 11/06/17 04:04 97.4 66 18 109/50 (69) 97 11/05/17 23:28 51 11/05/17 23:22 Nasal Cannula 2.00 11/05/17 23:18 96.7 57 18 119/57 (77) 95 11/05/17 22:30 97.5 59 20 155/70 (98) 97 Nasal Cannula 2 11/05/17 22:15 61 20 151/70 (97) 96 Nasal Cannula 2 11/05/17 22:01 57 20 152/67 (95) 99 Nasal Cannula 2 11/05/17 21:59 97.7 59 20 135/63 (87) 99 Nasal Cannula 2 11/05/17 18:12 Room Air 11/05/17 18:12 98.8 82 18 94 11/05/17 16:00 99.8 76 17 148/67 (94) 95 11/05/17 12:00 99.4 66 17 108/50 (69) 92 I/O 11/05/17 11/05/17 11/05/17 11/06/17 11/06/17 11/06/17 07:00 15:00 23:00 07:00 15:00 23:00 Intake Total 0 ml 0 ml 1200 ml 240 ml 1100 ml Output Total 300 ml 50 ml 1100 ml 325 ml Balance -300 ml -50 ml 100 ml -85 ml 1100 ml Intake Oral 0 ml 0 ml 240 ml IV Total 1100 ml Other 1200 ml Output Urine Total 300 ml 50 ml 950 ml 325 ml Estimated Blood Loss 150 ml # Bowel Movements 0 0 0 Result Diagram: 11/04/1752411/04/17524 Objective Remarks Skin with multiple facial lacerations and abrasions GENERAL: This is a well-nourished, well-developed patient, in no apparent distress. CARDIOVASCULAR: Regular rate and rhythm without murmurs, gallops, or rubs. RESPIRATORY: Clear to auscultation. Breath sounds equal bilaterally. No wheezes , rales, or rhonchi. GASTROINTESTINAL: Abdomen soft, non-tender, nondistended. Normal active bowel sounds MUSCULOSKELETAL: Bilateral upper extremity are dressed, lower Extremities without clubbing, cyanosis, or edema. NEURO: Alert & Oriented x4 to person, place, time, situation. Moves all ext x4 Procedures 11/03- cardiac catheterization- clean coronaries Date of Insertion: Nov 03, 2017 A/P Problem List: (1) Episode of syncope ICD Code: R55 - Syncope and collapse Status: Acute Plan: Continue with rehabilitation efforts, cardiology investigations are negative, no evidence of seizures (2) Wrist fracture ICD Code: S62.109A - Fracture of unspecified carpal bone, unspecified wrist, initial encounter for closed fracture Status: Acute Plan: Patient with elbow and wrist fractures needing surgical treatment Postop day 1 status post surgical treatment Add Ultram Discharge Planning pending postop management, discharged to rehabilitation Problem Qualifiers (1) Episode of syncope: Qualified Codes: R55 - Syncope and collapse (2) Wrist fracture: Qualified Codes: S62.101A - Fracture of unspecified carpal bone, right wrist, initial encounter for closed fracture Gladis Bain MD Nov 06, 2017 11:57
[2017-11-06 12:00] VITALS: BP 127/55; PULSE 62; RESP 17; TEMP 96.2; O2SAT 99
[2017-11-06] MEDS ORDERED: PILL SPLITTER OTHER PRN (13:00)
--- NOTE | 2017-11-06 13:03 | PD.ORT.PN ---
Subjective Subjective Remarks no new issues. no CP/SOB. pain controlled. Objective Vitals Vital Signs Date Time Temp Pulse Resp B/P (MAP) Pulse Ox O2 Delivery O2 Flow Rate FiO2 11/06/17 12:00 96.2 62 17 127/55 (79) 99 11/06/17 09:43 97 11/06/17 08:00 97.1 63 17 132/56 (81) 98 11/06/17 04:04 97.4 66 18 109/50 (69) 97 11/05/17 23:28 51 11/05/17 23:22 Nasal Cannula 2.00 11/05/17 23:18 96.7 57 18 119/57 (77) 95 11/05/17 22:30 97.5 59 20 155/70 (98) 97 Nasal Cannula 2 11/05/17 22:15 61 20 151/70 (97) 96 Nasal Cannula 2 11/05/17 22:01 57 20 152/67 (95) 99 Nasal Cannula 2 11/05/17 21:59 97.7 59 20 135/63 (87) 99 Nasal Cannula 2 11/05/17 18:12 Room Air 11/05/17 18:12 98.8 82 18 94 11/05/17 16:00 99.8 76 17 148/67 (94) 95 I/O 11/05/17 11/05/17 11/05/17 11/06/17 11/06/17 11/06/17 06:59 14:59 22:59 06:59 14:59 22:59 Intake Total 0 ml 0 ml 1200 ml 240 ml 1100 ml Output Total 300 ml 50 ml 1100 ml 325 ml Balance -300 ml -50 ml 100 ml -85 ml 1100 ml Intake Oral 0 ml 0 ml 240 ml IV Total 1100 ml Other 1200 ml Output Urine Total 300 ml 50 ml 950 ml 325 ml Estimated Blood Loss 150 ml # Bowel Movements 0 0 0 Result Diagram: 11/04/1752411/04/17524 Objective Remarks Alert awake and oriented x 3. No acute distress. Pulmonary: Normal respiratory effort. Right upper extremity exam: splint in place. 2+ radial artery pulses. Good cap refill. hand and finger swelling LUE: Neurovascularly intact, splint in place. 2+ radial artery pulses. Good cap refill. Assessment & Plan Assessment and Plan POD 1 ORIF right distal radius ORIF left olecranon doing well. NWB ALL john while here, at primary team discretion at dc ancef no dressing changes ok to dc per ortho likely SNF pain rx in chart Carlos Kauffman Jr., MD Nov 06, 2017 13:02
[2017-11-06] MEDS: traMADol HCL 50 MG TAB PO SCH (13:11)
[2017-11-06 13:34] LABS: HEMOGLOBIN 7.5 GM/DL (11.6-15.3); MEAN CORPUSCULAR HEMOGLOBIN 33.1 PG (27.0-34.0); MEAN CORPUSCULAR HGB CONC 33.8 % (32.0-36.0); MEAN PLATELET VOLUME 9.4 FL (7.0-11.0); PLATELET COUNT 101 TH/MM3 (150-450); RED BLOOD COUNT 2.25 MIL/MM3 (4.00-5.30); WHITE BLOOD COUNT 6.1 TH/MM3 (4.0-11.0)
[2017-11-06 16:00] VITALS: BP 113/52; PULSE 70; RESP 17; TEMP 97.5; O2SAT 98
[2017-11-06 20:30] VITALS: BP 159/73; PULSE 80; RESP 16; TEMP 98.6; O2SAT 100
[2017-11-07] MEDS: traMADol HCL 50 MG TAB PO SCH ×2 (00:14→12:27)
[2017-11-07] MEDS: SODIUM CHLOR 0.9% 1000 ML INJ 1,000 ML IV SCH (00:14)
[2017-11-07 00:20] VITALS: BP 149/61; PULSE 84; RESP 16; TEMP 99.4; O2SAT 99
[2017-11-07] MEDS: LACTATED RINGER'S 1000 ML INJ 1,000 ML IV SCH ×2 (01:45→11:45)
[2017-11-07 04:03] VITALS: BP 115/55; PULSE 80; RESP 16; TEMP 97.7; O2SAT 99
[2017-11-07] MEDS: BACITRACIN TOP OINT 15 GM TUBE TOPICAL SCH ×2 (06:00→14:58)
[2017-11-07 08:00] VITALS: BP 124/49; PULSE 70; RESP 18; TEMP 98.8; O2SAT 100
[2017-11-07] MEDS: SODIUM CHLORIDE 0.9% FLUSH 10 ML FLUSH IV FLUSH SCH (09:00)
[2017-11-07] MEDS: DOCUSATE SODIUM 50 MG/SENNA 8.6 MG TAB PO SCH (09:35)
[2017-11-07] MEDS: ATORVASTATIN 10 MG TAB PO SCH (09:35)
[2017-11-07] MEDS: DOCUSATE SODIUM 100 MG CAP PO SCH (09:35)
[2017-11-07] MEDS: CARVEDILOL 12.5 MG TAB PO SCH (09:35)
[2017-11-07] MEDS: oxyCODONE/ACETAMINOPHEN 5 MG/325 MG TAB PO PRN (09:35)
[2017-11-07] MEDS: SACUBITRIL/VALSARTAN 97 MG-103 MG TAB PO SCH (09:36)
[2017-11-07] MEDS: PANTOPRAZOLE SOD 40 MG DELAYED RELEASE TAB PO SCH (09:36)
[2017-11-07] MEDS ORDERED: ENOX30P SQ (10:35)
--- NOTE | 2017-11-07 10:35 | HHI.DCPOC ---
Discharge Care Plan Diagnosis: (1) Elevated troponin (2) Wrist fracture (3) Elbow fracture Goals to Promote Your Health * To prevent worsening of your condition and complications * To maintain your health at the optimal level Directions to Meet Your Goals Take your medications as prescribed Follow your dietary instruction Follow activity as directed Keep your appointments as scheduled Take your immunizations and boosters as scheduled If your symptoms worsen call your PCP, if no PCP go to Urgent Care Center or Emergency Room Smoking is Dangerous to Your Health. Avoid second hand smoke Call the 24-hour hour crisis hotline for domestic abuse at Gladis Bain MD Nov 07, 2017 10:35
--- NOTE | 2017-11-07 11:26 | HHI.DS ---
Discharge Summary Admission Date Nov 02, 2017 at 19:12 Discharge Date: Nov 07, 2017 Admitting Diagnosis fall, wrist fracture, elbow fracture, syncope, CHI (1) Episode of syncope ICD Code: R55 - Syncope and collapse Status: Acute (2) Wrist fracture ICD Code: S62.109A - Fracture of unspecified carpal bone, unspecified wrist, initial encounter for closed fracture Status: Acute Procedures 11/03- cardiac catheterization- clean coronaries ORIF left elbow, right radius fracture Brief History - From Admission 81-year-old female with a past medical history significant for CHF (last echo done on 04/26 showed an EF of 25-30%), hypertension, osteoarthritis and a history of temporal arteritis presents to the emergency department after suffering a mechanical fall. The patient states she [place] the [place]. She denies loss of consciousness at that time. X-rays positive for an impacted intra-articular distal radius fracture of the right wrist and a left olecranon process fracture. The patient also sustained a laceration to the head just above the eyebrow which was repaired in the emergency department. While in x-ray, the patient had a syncopal episode for which a CODE BLUE was called. She regained consciousness without intervention. Lab work remarkable for an elevated troponin at 0.65, was less than 0.02 on . The patient denies any chest pain or previous syncopal episodes. EKG showed NSR without ST segment elevations or depressions. CBC/BMP: 11/06/17 1240 11/04/17 0525 Significant Findings Laboratory Tests Test 11/06/17 12:40 Red Blood Count 2.25 MIL/MM3 (4.00-5.30) Hemoglobin 7.5 GM/DL (11.6-15.3) Hematocrit 22.0 % (35.0-46.0) Platelet Count 101 TH/MM3 (150-450) Imaging Last Impressions Wrist X-Ray 11/05/17 0000 Signed Impressions: Service Date/Time: Sunday, November 05, 2017 20:35 - CONCLUSION: Screw and plate fixation of comminuted distal radial fracture into near-anatomic alignment. No acute complication demonstrated. Harlan Lee MD Elbow X-Ray 11/05/17 0000 Signed Impressions: Service Date/Time: Sunday, November 05, 2017 21:01 - CONCLUSION: Interim open reduction internal fixation of olecranon fracture into normal alignment. No acute complication demonstrated. Harlan Lee MD Carotid Artery Ultrasound 11/03/17 0000 Signed Impressions: Service Date/Time: Friday, November 03, 2017 07:42 - CONCLUSION: Negative examination for a hemodynamically significant carotid stenosis. Board Certified Radiologist. This report was verified electronically. Maxillofacial CT 11/02/17 0000 Signed Impressions: Service Date/Time: Thursday, November 02, 2017 17:44 - CONCLUSION: No evidence of fracture. Bilateral TMJ arthrosis noted. Kirby Melo MD Knee X-Ray 11/02/17 0000 Signed Impressions: Service Date/Time: Thursday, November 02, 2017 16:43 - CONCLUSION: 1. No evidence of fracture. 2. Small joint effusion. Kirby Melo MD Head CT 11/02/17 0000 Signed Impressions: Service Date/Time: Thursday, November 02, 2017 17:44 - CONCLUSION: No acute intracranial findings. Kirby Melo MD Chest X-Ray 11/02/17 0000 Signed Impressions: Service Date/Time: Thursday, November 02, 2017 17:17 - CONCLUSION: No acute cardiopulmonary disease identified. Kirby Melo MD Cervical Spine CT 11/02/17 0000 Signed Impressions: Service Date/Time: Thursday, November 02, 2017 17:44 - CONCLUSION: 1. No evidence of fracture. 2. 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 There is evidence of particularly prominent arthrosis at C1 to with superior migration of the C2 odontoid process (cranial settling). This finding can be seen with rheumatoid arthritis. 3. Mild central canal narrowing at C3-4 and C4-5. Kirby Melo MD PE at Discharge Skin with multiple facial lacerations and abrasions GENERAL: This is a well-nourished, well-developed patient, in no apparent distress. CARDIOVASCULAR: Regular rate and rhythm without murmurs, gallops, or rubs. RESPIRATORY: Clear to auscultation. Breath sounds equal bilaterally. No wheezes , rales, or rhonchi. GASTROINTESTINAL: Abdomen soft, non-tender, nondistended. Normal active bowel sounds MUSCULOSKELETAL: Bilateral upper extremity are dressed, lower Extremities without clubbing, cyanosis, or edema. NEURO: Alert & Oriented x4 to person, place, time, situation. Moves all ext x4 Hospital Course Patient seen and evaluated in follow-up for syncopal episode. She did elevated cardiac enzymes. Should have a cardiac catheterization which showed clear coronary arteries. She was cleared by cardiology to have repair of fractures sustained in her syncopal fall. Patient did have an ORIF of left elbow/ olecranon and ORIF of the right radial fracture. She did well. She was discharged to rehabilitation Pt Condition on Discharge: Good Discharge Disposition: Discharge to SNF Discharge Time: > 30 minutes Discharge Instructions DIET: Follow Instructions for: As Tolerated, No Restrictions Activities you can perform: Regular-No Restrictions Follow up Referrals: Orthopedics - 2 Weeks New Medications: Hydrocodone-Acetaminophen ([place]) 5 Mg-325 Mg Tab 1 TAB PO Q4H PRN for PAIN, #45 TAB 0 Refills Enoxaparin Inj (Lovenox Inj) 30 Mg/0.3 Ml Syr 30 MG SQ Q24H for clot prevention, #31 INJECTION Continued Medications: Aspirin DR (Aspirin EC) 81 Mg Tabdr 81 MG PO DAILY, TAB 0 Refills Atorvastatin (Atorvastatin) 10 Mg Tab 10 MG PO DAILY for Cholesterol Management, #30 TAB 0 Refills Carvedilol (Carvedilol) 12.5 Mg Tab 12.5 MG PO BID, #60 TAB 0 Refills Furosemide (Furosemide) 20 Mg Tab 20 MG PO EVERY OTHER DAY, #30 TAB 0 Refills Pantoprazole (Pantoprazole) 40 Mg Tab 40 MG PO DAILY for Reflux, #30 TAB 0 Refills Sacubitril-Valsartan (Entresto) 97-103 Mg Tab 1 TAB PO BID for Heart Failure, #30 TAB 0 Refills Gladis Bain MD Nov 07, 2017 11:26
[2017-11-07 11:30] VITALS: O2SAT 99
[2017-11-07 12:00] VITALS: BP 138/91; PULSE 64; RESP 18; TEMP 97.6; O2SAT 98
[2017-11-07] MEDS: ENOXAPARIN SODIUM 30 MG/0.3 ML SYRINGE SQ SCH (12:26)
[2017-11-07 16:00] VITALS: BP 159/59; PULSE 68; RESP 20; TEMP 96.9; O2SAT 100
== END 2017-11-07 18:30 | DRG 511 ==
LOC: NEPD 15:00 → NEDA 19:12 → N06A 20:36 → N03B 11-03 10:37 → N06A 11-04 11:52
PROVIDERS: ADMIT Hospitalist; ATTEND Hospitalist
PROC: 0HQ1XZZ Repair Face Skin, External Approach (ICD-10-PCS; 2017-11-02)
PROC: 4A023N7 Measurement of Cardiac Sampling and Pressure, Left Heart, Percutaneous Approach (ICD-10-PCS; 2017-11-03)
PROC: B2111ZZ Fluoroscopy of Multiple Coronary Arteries using Low Osmolar Contrast (ICD-10-PCS; 2017-11-03)
PROC: 0PSH04Z Reposition Right Radius with Internal Fixation Device, Open Approach (ICD-10-PCS; principal; 2017-11-05 19:39)
PROC: 0PSL04Z Reposition Left Ulna with Internal Fixation Device, Open Approach (ICD-10-PCS; 2017-11-05 19:39)
DX: S52.571A Other intraarticular fracture of lower end of right radius, initial encounter for closed fracture (principal); S52.022A Displaced fracture of olecranon process without intraarticular extension of left ulna, initial encounter for closed fracture; I42.8 Other cardiomyopathies; I95.9 Hypotension, unspecified; I11.0 Hypertensive heart disease with heart failure; E87.1 Hypo-osmolality and hyponatremia; I50.9 Heart failure, unspecified; R00.1 Bradycardia, unspecified; S01.112A Laceration without foreign body of left eyelid and periocular area, initial encounter; I08.2 Rheumatic disorders of both aortic and tricuspid valves; R55 Syncope and collapse; W01.0XXA Fall on same level from slipping, tripping and stumbling without subsequent striking against object, initial encounter; Y93.01 Activity, walking, marching and hiking; Y92.830 Public park as the place of occurrence of the external cause; Z85.828 Personal history of other malignant neoplasm of skin; M19.90 Unspecified osteoarthritis, unspecified site; K21.9 Gastro-esophageal reflux disease without esophagitis; I44.7 Left bundle-branch block, unspecified; Z87.891 Personal history of nicotine dependence; M81.0 Age-related osteoporosis without current pathological fracture; I25.2 Old myocardial infarction; E78.5 Hyperlipidemia, unspecified; M54.9 Dorsalgia, unspecified; S00.81XA Abrasion of other part of head, initial encounter; R74.8 Abnormal levels of other serum enzymes
CPT/HCPCS: 12013; 70450; 70486; 71010; 72125; 73070; 73100; 73110; 73564; 76000; 80048; 80053; 81001; 82550; 83735; 84484; 85002; 85014; 85018; 85025; 85027; 85379; 85610; 85730; 86850; 86900; 86901; 86920; 90471; 90714; 93005; 93306; 93454; 93880; 96361; 96374; C1713; C1769; C1893; J0131; J0461; J0690; J1580; J1644; J1650; J2250; J2270; J2370; J2405; J2710; J3480; J7030; J7040; J7120; Q9967

== ENCOUNTER 2018-01-01 10:22 | Emergency (ER) | payer MEDICARE, OTHER ==
[~2018-01-01] VITALS: Ht 152.4 cm; Wt 41.0 kg
[~2018-01-01 10:22] MED LIST changes: +ASPI81TA23 PO; -ATOR10 PO; +ATOR10TA15 PO; +CARV12.52 PO; -CARV6.25 PO; -ECOT81TA2 PO; +ENOX30P SQ; -FURO20 PO; +FURO20TA PO; -LISI5 PO; +NORC5TAB PO; +PANT40TA3 PO; -PROT40TA PO; +SACU1TAB4 PO
[2018-01-01 10:27] VITALS: BP 202/79; PULSE 67; RESP 16; TEMP 97.9; O2SAT 98
[2018-01-01] MEDS ORDERED: FURO20TA PO (10:40)
[2018-01-01] MEDS ORDERED: FAMO20TA2 PO (10:41)
[2018-01-01 10:45] LABS: BILIRUBIN, URINE NEG (NEG); BLOOD, URINE NEG (NEG); GLUCOSE,URINE NEG (NEG); KETONE, URINE NEG (NEG); NITRITE,URINE NEG (NEG); URINE LEUKOCYTE ESTERASE TRACE (NEG)
[2018-01-01 10:55] VITALS: BP 170/61; PULSE 61; RESP 16; O2SAT 95
[2018-01-01 10:59] LABS: URINE COLOR STRAW (YELLW/STRAW)
[2018-01-01 11:00] LABS: AMORPHOUS SEDIMENT, URINE FEW; SQUAMOUS EPITHELIAL CELL URINE 0-5 /hpf (0-5); WBC, URINE 0-2 /hpf (0-5)
[2018-01-01] MEDS ORDERED: SODIUM CHLOR 0.9% 1000 ML INJ 1,000 ML IV SCH (11:00)
--- NOTE | 2018-01-01 11:04 | PD ---
HPI Chief Complaint: GI Complaint Time Seen by Provider: 10:42 Travel History International Travel<30 days: No Contact w/Intl Traveler<30days: No Traveled to known affect area: No History of Present Illness HPI This 82-year-old female is complaining of abdominal pain. Says she's been having pain off and on for a couple of weeks. The pain is primarily in the epigastric area. It is aggravated by eating. She has had some weight loss over this. She estimates that she has lost about 6 pounds in weight she has had some intermittent diarrhea. It seems the diarrhea seems to be slowing down a little bit. She says that she feels dizzy when she stands. She has a history of congestive failure. She does not smoke or drink alcohol. She has not had any abdominal surgery. The pain is intermittent. She has been on Protonix. She saw Dr. Franklyn Herrera, Saturday and he had Pepcid. She had had a fall on November 02. She broke both of her arms and needed surgery on both arms. She was sent to rehabilitation on November 07 and was there for several weeks. She has been home for a couple weeks. She has a history of congestive heart failure. She says she has lost 6 pounds in the last 2 weeks. Review of previous chart shows she has been on Protonix in the past PFSH Past Medical History Hx Anticoagulant Therapy: Yes (ASA 81MG DAILY) Arthritis: Yes Cancer: No Cardiovascular Problems: Yes Chest Pain: No Congestive Heart Failure: Yes (NEW ONSET 04/19/16) Diabetes: No Diminished Hearing: No Endocrine: No Gastrointestinal Disorders: No Genitourinary: No Headaches: Yes Herniated Disk: Yes ("SHATTERED DISCS" ) Hypertension: No Immune Disorder: No Implanted Vascular Access Dvce: No Musculoskeletal: Yes Neurologic: No Psychiatric: No Reproductive: No Respiratory: No Immunizations Current: Yes Ulcer: Yes (GASTRIC ?) Tetanus Vaccination: < 5 Years ?: Not Menopausal: Yes : 3 Para: 3 Past Surgical History Other Surgery: No Social History Alcohol Use: No Tobacco Use: No (QUIT 1994) Substance Use: No Allergies-Medications (Allergen,Severity, Reaction): Coded Allergies: NSAIDS (Non-Steroidal Anti-Inflamma (Verified Adverse Reaction, Intermediate, GI UPSET, 01/01/18) Reported Meds & Prescriptions Reported Meds & Active Scripts Active [place] (Hydrocodone-Acetaminophen) 5 Mg-325 Mg Tab 1 Tab PO Q4H PRN Reported Famotidine 20 Mg Tab 20 Mg PO HS Furosemide 20 Mg Tab 20 Mg PO DAILY Entresto (Sacubitril-Valsartan) 97-103 Mg Tab 1 Tab PO BID Carvedilol 12.5 Mg Tab 12.5 Mg PO BID Pantoprazole (Pantoprazole Sodium) 40 Mg Tab 40 Mg PO DAILY Atorvastatin (Atorvastatin Calcium) 10 Mg Tab 10 Mg PO DAILY Aspirin EC (Aspirin) 81 Mg Tabdr 81 Mg PO DAILY Review of Systems General / Constitutional: Positive: Weight Loss, No: Fever, Chills Eyes: No: Diploplia, Blurred Vision HENT: No: Headaches, Vertigo Cardiovascular: No: Chest Pain or Discomfort, Palpitations Respiratory: No: Cough, Shortness of Breath Gastrointestinal: Positive: Nausea, Diarrhea, Loss of Appetite Genitourinary: No: Urgency, Frequency Musculoskeletal: No: Myalgias, Arthralgias Skin: No Rash, No Itching Endocrine: No: Heat Intolerance Hematologic/Lymphatic: No: Easy Bruising Physical Exam Narrative GENERAL: Well-developed female SKIN: Focused skin assessment warm/dry. HEAD: Atraumatic. Normocephalic. EYES: Pupils equal and round. No scleral icterus. No injection or drainage. ENT: No nasal bleeding or discharge. Mucous membranes pink and moist. NECK: Trachea midline. No JVD. CARDIOVASCULAR: Regular rate and rhythm. No murmur appreciated. RESPIRATORY: No accessory muscle use. Clear to auscultation. Breath sounds equal bilaterally. GASTROINTESTINAL: Abdomen soft, there is epigastric tenderness, nondistended. Hepatic and splenic margins not palpable. MUSCULOSKELETAL: No obvious deformities. No clubbing. No cyanosis. No edema. NEUROLOGICAL: Awake and alert. No obvious cranial nerve deficits. Motor grossly within normal limits. Normal speech. PSYCHIATRIC: Appropriate mood and affect; insight and judgment normal. Data Data Last Documented VS Vital Signs Date Time Temp Pulse Resp B/P (MAP) Pulse Ox O2 Delivery O2 Flow Rate FiO2 01/01/18 11:18 57 16 163/66 (98) 59 16 172/86 (114) 71 16 139/70 (93) 01/01/18 10:55 95 Room Air 01/01/18 10:27 97.9 Orders Orders Urinalysis - C+S If Indicated (01/01/18 10:26) Complete Blood Count With Diff (01/01/18 10:54) Comprehensive Metabolic Panel (01/01/18 10:54) B-Type Natriuretic Peptide (01/01/18 10:54) Prothrombin Time / Inr (Pt) (01/01/18 10:54) Act Partial Throm Time (Ptt) (01/01/18 10:54) Lipase (01/01/18 10:54) Thyroid Stimulating Hormone (01/01/18 10:54) Ct Abd/Pel W Iv Contrast(Rout) (01/01/18 10:54) Orthostatic Vital Signs (01/01/18 10:54) Sodium Chlor 0.9% 1000 Ml Inj (Ns 1000 M (01/01/18 11:00) C Diff Toxin Pcr (01/01/18 10:58) Ondansetron Inj (Zofran Inj) (01/01/18 11:30) Urine Culture (01/01/18 12:04) Iohexol 350 Inj (Omnipaque 350 Inj) (01/01/18 12:14) Labs Laboratory Tests Test 01/01/18 10:35 01/01/18 11:00 Urine Collection Type CLEAN CATCH Urine Color STRAW Urine Turbidity CLEAR Urine pH 7.0 Urine Specific [place] 1.003 Urine Protein NEG mg/dL Urine Glucose (UA) NEG mg/dL Urine Ketones NEG mg/dL Urine Occult Blood NEG Urine Nitrite NEG Urine Bilirubin NEG Urine Leukocyte Esterase TRACE Urine WBC 0-2 /hpf Urine Squamous Epithelial Cells 0-5 /hpf Urine Amorphous Sediment FEW Microscopic Urinalysis Comment CULT NOT INDICATED Urine Collection Time 1035 White Blood Count 5.7 TH/MM3 Red Blood Count 3.42 MIL/MM3 Hemoglobin 10.4 GM/DL Hematocrit 31.5 % Mean Corpuscular Volume 92.0 FL Mean Corpuscular Hemoglobin 30.2 PG Mean Corpuscular Hemoglobin Concent 32.8 % Red Cell Distribution Width 13.7 % Platelet Count 208 TH/MM3 Mean Platelet Volume 8.2 FL Neutrophils (%) (Auto) 69.4 % Lymphocytes (%) (Auto) 18.6 % Monocytes (%) (Auto) 8.6 % Eosinophils (%) (Auto) 2.6 % Basophils (%) (Auto) 0.8 % Neutrophils # (Auto) 4.0 TH/MM3 Lymphocytes # (Auto) 1.1 TH/MM3 Monocytes # (Auto) 0.5 TH/MM3 Eosinophils # (Auto) 0.1 TH/MM3 Basophils # (Auto) 0.0 TH/MM3 CBC Comment DIFF FINAL Differential Comment Prothrombin Time 10.2 SEC Prothromb Time International Ratio 1.0 RATIO Activated Partial Thromboplast Time 23.8 SEC Blood Urea Nitrogen 8 MG/DL Creatinine 0.54 MG/DL Random Glucose 110 MG/DL Total Protein 6.8 GM/DL Albumin 4.0 GM/DL Calcium Level 8.8 MG/DL Alkaline Phosphatase 60 U/L Aspartate Amino Transf (AST/SGOT) 10 U/L Alanine Aminotransferase (ALT/SGPT) 13 U/L Total Bilirubin 0.3 MG/DL Sodium Level 128 MEQ/L Potassium Level 4.3 MEQ/L Chloride Level 93 MEQ/L Carbon Dioxide Level 29.1 MEQ/L Anion Gap 6 MEQ/L Estimat Glomerular Filtration Rate 108 ML/MIN B-Type Natriuretic Peptide 245 PG/ML Lipase 349 U/L Thyroid Stimulating Hormone 3rd Gen 2.730 uIU/ML MDM Medical Decision Making Medical Screen Exam Complete: Yes Emergency Medical Condition: Yes Medical Record Reviewed: Yes Differential Diagnosis Differential includes gastritis, ulcer disease, bowel obstruction, cancer Narrative Course Sodium is slightly low at 128. Urine is negative for infection. Lipase is normal. CT scanning of the abdomen and pelvis with contrast is negative. Patient was started on Pepcid a few days ago underwent a recommend that she go to a Protonix. Will also prescribe some Zofran. She is stable for discharge Diagnosis Primary Impression: Gastritis Scripts Ondansetron Odt (Zofran Odt) 4 Mg Tab 4 MG SL Q8HR Y for Nausea/Vomiting, #12 TAB 0 Refills Prov: Kwadwo Bernstein MD 01/01/18 Pantoprazole (Protonix) 40 Mg Tab 40 MG PO DAILY for Reflux, #30 TAB 0 Refills Prov: Kwadwo Bernstein MD 01/01/18 Disposition: 01 DISCHARGE HOME Condition: Stable Kwadwo Bernstein MD Jan 01, 2018 11:04
[2018-01-01 11:12] LABS: BASOPHIL % 0.8 % (0.0-2.0); EOSINOPHIL # 0.1 TH/MM3 (0-0.4); EOSINOPHIL % 2.6 % (0.0-4.0); HEMATOCRIT 31.5 % (35.0-46.0); HEMOGLOBIN 10.4 GM/DL (11.6-15.3); LYMPH % 18.6 % (9.0-44.0); LYMPHOCYTE # 1.1 TH/MM3 (1.0-4.8); MEAN CORPUSCULAR HEMOGLOBIN 30.2 PG (27.0-34.0); MEAN CORPUSCULAR HGB CONC 32.8 % (32.0-36.0); MEAN PLATELET VOLUME 8.2 FL (7.0-11.0); MONO % 8.6 % (0.0-8.0); MONOCYTE # 0.5 TH/MM3 (0-0.9); NEUT % 69.4 % (16.0-70.0); PLATELET COUNT 208 TH/MM3 (150-450); RED BLOOD COUNT 3.42 MIL/MM3 (4.00-5.30); RED CELL DISTRIBUTION WIDTH 13.7 % (11.6-17.2); WHITE BLOOD COUNT 5.7 TH/MM3 (4.0-11.0)
[2018-01-01 11:18] VITALS: BP_SYST 139; BP_SYST 163; BP_SYST 172; BP_DIAS 66; BP_DIAS 70; BP_DIAS 86; RESP 16
[2018-01-01 11:22] LABS: CHLORIDE 93 MEQ/L (98-107); SODIUM (NA) 128 MEQ/L (136-145)
[2018-01-01 11:25] LABS: CALCIUM 8.8 MG/DL (8.5-10.1)
[2018-01-01 11:26] LABS: BICARBONATE 29.1 MEQ/L (21.0-32.0); BLOOD UREA NITROGEN 8 MG/DL (7-18); GLUCOSE,RANDOM 110 MG/DL (74-106); PROTHROMBIN TIME - PATIENT 10.2 SEC (9.8-11.6)
[2018-01-01 11:28] LABS: ALT (GPT) 13 U/L (10-53); AST (GOT) 10 U/L (15-37)
[2018-01-01 11:29] LABS: CREATININE 0.54 MG/DL (0.50-1.00); GLOMERULAR FILTRATION RATE 108 ML/MIN (>89)
[2018-01-01 11:30] LABS: TOTAL BILIRUBIN ADULT 0.3 MG/DL (0.2-1.0); TOTAL PROTEIN 6.8 GM/DL (6.4-8.2)
[2018-01-01] MEDS ORDERED: ONDANSETRON HCL 4 MG/2 ML VIAL IV PUSH ONE (11:30)
[2018-01-01 11:31] LABS: ALKALINE PHOSPHATASE 60 U/L (45-117)
[2018-01-01] MEDS ORDERED: IOHEXOL 350 MG/ML 10 ML VIAL (for RAD DIAG) IVCONTRAST ONE (12:14)
--- NOTE | 2018-01-01 12:24 | RADRPT ---
EXAM DATE/TIME: 01/01/2018 12:03 [facility] COMPARISON: No previous studies available for comparison. INDICATIONS : Epigastric pain. Loss of apetite. Weight loss. IV CONTRAST: 85 cc Omnipaque 350 (iohexol) IV ORAL CONTRAST: No oral contrast ingested. RADIATION DOSE: 4.44 CTDIvol (mGy) MEDICAL HISTORY : Congestive heart failure. Ulcers. SURGICAL HISTORY : None. ENCOUNTER: Initial ACUITY: 3 weeks PAIN SCALE: 10/10 LOCATION: Epigastric TECHNIQUE: Volumetric scanning of the abdomen and pelvis was performed. Using automated exposure control and ad justment of the mA and/or kV according to patient size, radiation dose was kept as low as reasonably achievable to obtain optimal diagnostic quality images. DICOM format image data is available electro nically for review and comparison. FINDINGS: There is mild parenchymal scarring at the lung bases with some basilar bullous changes on the left. No acute findings in the spleen, adrenals, kidneys or pancreas. Mild fatty liver. There is no bowel obstruction. No free air or free fluid. There is some mild variceal enlargement of the pelvic veins. Atherosclerotic aorta without aneurysm. Distended bladder. CONCLUSION: 1. No acute findings. Basilar fibrotic changes in the lungs with some bullous changes at the left mena g base. 2. Mild fatty liver. No obstruction, free fluid or free air. Mild variceal enlargement of the pelvic veins around the uterus and adnexa. Raul Zhao MD on January 01, 2018 at 12:17 Board Certified Radiologist. This report was verified electronically.
[2018-01-01] MEDS ORDERED: PROT40TA PO (12:33)
[2018-01-01] MEDS ORDERED: ZOFR4TAB3 SL (12:33)
== END 2018-01-01 13:09 | disposition home or self-care (01) ==
LOC: PHED 10:22
DX: K29.70 Gastritis, unspecified, without bleeding (principal); M19.90 Unspecified osteoarthritis, unspecified site; I50.9 Heart failure, unspecified; Z79.82 Long term (current) use of aspirin; Z88.8 Allergy status to other drugs, medicaments and biological substances
CPT/HCPCS: 74177; 80053; 81001; 83690; 83880; 84443; 85025; 85610; 85730; 87086; 96361; 96374; 99284; J2405; J7030; Q9967

== ENCOUNTER 2018-01-09 08:39 | Inpatient (IN) | payer OTHER, MEDICARE ==
[~2018-01-09] VITALS: Ht 152.4 cm; Wt 39.0 kg
[2018-01-09] VITALS (12 sets, daily range): BP systolic 98–221; BP diastolic 40–81; PULSE 62–79; RESP 16–20; TEMP 97.9–98.5; O2SAT 96–100
[~2018-01-09 08:39] MED LIST changes: -ENOX30P SQ; +FAMO20TA2 PO; +PROT40TA PO; +ZOFR4TAB3 SL
--- NOTE | 2018-01-09 08:53 | PD ---
HPI Chief Complaint: Chest Pain Time Seen by Provider: 08:42 Travel History International Travel<30 days: No Contact w/Intl Traveler<30days: No Traveled to known affect area: No History of Present Illness HPI This is an 82-year-old female who presents for acute chest pain. She states that overnight, she developed substernal chest pressure. It radiates to her neck and jaw. She has had intermittent associated diaphoresis and shortness of breath. No palpitations. No lower extremity edema, calf pain. She denies recent fever, chills, cough, congestion. No alleviating or aggravating factors. No prior treatment. She states that she had previously been having abdominal pain, was seen in the emergency department and diagnosed with gastritis. Patient states that this feels different. She has been eating less than usual and feels mildly fatigued. PFSH Past Medical History Hx Anticoagulant Therapy: Yes (ASA 81MG DAILY) Arthritis: Yes Cancer: No Cardiovascular Problems: Yes Chest Pain: No Congestive Heart Failure: Yes (NEW ONSET 04/19/16) Diabetes: No Diminished Hearing: No Endocrine: No Gastrointestinal Disorders: No Genitourinary: No Headaches: Yes Herniated Disk: Yes ("SHATTERED DISCS" ) Hypertension: No Immune Disorder: No Implanted Vascular Access Dvce: No Musculoskeletal: Yes Neurologic: No Psychiatric: No Reproductive: No Respiratory: No Immunizations Current: Yes Ulcer: Yes (GASTRIC ?) ?: Not Menopausal: Yes : 3 Para: 3 Past Surgical History Other Surgery: No Social History Alcohol Use: No Tobacco Use: No (QUIT 1994) Substance Use: No Allergies-Medications (Allergen,Severity, Reaction): Coded Allergies: NSAIDS (Non-Steroidal Anti-Inflamma (Verified Adverse Reaction, Intermediate, GI UPSET, 01/09/18) Reported Meds & Prescriptions Reported Meds & Active Scripts Active Reported Magnesium Oxide 500 Mg Tab 500 Mg PO BID Potassium Chloride ER (Potassium Chloride) 20 Meq Tab Unknown Dose PO DAILY Famotidine 20 Mg Tab 20 Mg PO HS Furosemide 20 Mg Tab 20 Mg PO DAILY Entresto (Sacubitril-Valsartan) 97-103 Mg Tab 1 Tab PO BID Carvedilol 12.5 Mg Tab 12.5 Mg PO BID Pantoprazole (Pantoprazole Sodium) 40 Mg Tab 40 Mg PO DAILY Atorvastatin (Atorvastatin Calcium) 10 Mg Tab 10 Mg PO DAILY Aspirin EC (Aspirin) 81 Mg Tabdr 81 Mg PO DAILY Review of Systems Except as stated in HPI: all other systems reviewed are Neg Physical Exam Narrative GENERAL: Alert, well nourished, well appearing patient resting on the bed in no acute distress. Vital Signs reviewed SKIN: Focused skin assessment warm/dry. HEAD: Atraumatic. Normocephalic. EYES: Pupils equal and round. No scleral icterus. No injection or drainage. ENT: No nasal bleeding or discharge. Mucous membranes pink and moist. NECK: Trachea midline. No JVD. Spontaneous, painless full range of motion with no meningismus CARDIOVASCULAR: Regular rate and rhythm. No murmur appreciated. Extremities warm and well perfused with bounding peripheral pulses RESPIRATORY: No accessory muscle use. Clear to auscultation. Breath sounds equal bilaterally. Breathing easily and speaking in full sentences GASTROINTESTINAL: Abdomen soft, non-tender, nondistended. Normal bowel sounds. No rigid, rebound, guarding MUSCULOSKELETAL: No obvious deformities. No clubbing. No cyanosis. No edema. Compartments are soft NEUROLOGICAL: Awake and alert. No obvious cranial nerve deficits. Motor grossly within normal limits. Normal speech. Sensation intact. Normal gait Data Data Last Documented VS Vital Signs Date Time Temp Pulse Resp B/P (MAP) Pulse Ox O2 Delivery O2 Flow Rate FiO2 01/09/18 10:21 71 16 141/72 (95) 100 Nasal Cannula 2.00 01/09/18 08:45 98.1 Orders Orders Electrocardiogram (01/09/18 08:48) Ckmb (Isoenzyme) Profile (01/09/18 08:48) Complete Blood Count With Diff (01/09/18 08:48) Comprehensive Metabolic Panel (01/09/18 08:48) Magnesium (Mg) (01/09/18 08:48) Prothrombin Time / Inr (Pt) (01/09/18 08:48) Act Partial Throm Time (Ptt) (01/09/18 08:48) Troponin I (01/09/18 08:48) Lipase (01/09/18 08:48) Ecg Monitoring (01/09/18 08:48) Bilateral Bp Monitoring (01/09/18 08:48) Iv Access Insert/Monitor (01/09/18 08:48) Oximetry (01/09/18 08:48) Aspirin (Aspirin) (01/09/18 09:00) Sodium Chloride 0.9% Flush (Ns Flush) (01/09/18 09:00) Chest, Pa & Lat (01/09/18 08:48) Nitroglycerin Sl (Nitrostat Sl) (01/09/18 09:00) B-Type Natriuretic Peptide (01/09/18 08:52) Sodium Chlorid 0.9% 500 Ml Inj (Ns 500 M (01/09/18 09:30) Nitroglycerin Sl (Nitrostat Sl) (01/09/18 09:45) Labs Laboratory Tests Test 01/09/18 08:50 White Blood Count 5.7 TH/MM3 Red Blood Count 3.21 MIL/MM3 Hemoglobin 10.6 GM/DL Hematocrit 29.7 % Mean Corpuscular Volume 92.4 FL Mean Corpuscular Hemoglobin 33.0 PG Mean Corpuscular Hemoglobin Concent 35.7 % Red Cell Distribution Width 13.6 % Platelet Count 183 TH/MM3 Mean Platelet Volume 7.2 FL Neutrophils (%) (Auto) 70.0 % Lymphocytes (%) (Auto) 19.1 % Monocytes (%) (Auto) 7.3 % Eosinophils (%) (Auto) 2.9 % Basophils (%) (Auto) 0.7 % Neutrophils # (Auto) 4.0 TH/MM3 Lymphocytes # (Auto) 1.1 TH/MM3 Monocytes # (Auto) 0.4 TH/MM3 Eosinophils # (Auto) 0.2 TH/MM3 Basophils # (Auto) 0.0 TH/MM3 CBC Comment DIFF FINAL Differential Comment Prothrombin Time 10.4 SEC Prothromb Time International Ratio 1.0 RATIO Activated Partial Thromboplast Time 24.1 SEC Blood Urea Nitrogen 7 MG/DL Creatinine 0.46 MG/DL Random Glucose 108 MG/DL Total Protein 7.1 GM/DL Albumin 4.2 GM/DL Calcium Level 8.5 MG/DL Magnesium Level 2.2 MG/DL Alkaline Phosphatase 63 U/L Aspartate Amino Transf (AST/SGOT) 14 U/L Alanine Aminotransferase (ALT/SGPT) 14 U/L Total Bilirubin 0.5 MG/DL Sodium Level 122 MEQ/L Potassium Level 3.8 MEQ/L Chloride Level 87 MEQ/L Carbon Dioxide Level 27.3 MEQ/L Anion Gap 8 MEQ/L Estimat Glomerular Filtration Rate 129 ML/MIN Total Creatine Kinase 36 U/L Troponin I LESS THAN 0.02 NG/ML B-Type Natriuretic Peptide 467 PG/ML Lipase 259 U/L MDM Medical Decision Making Medical Screen Exam Complete: Yes Emergency Medical Condition: Yes Medical Record Reviewed: Yes Interpretation(s) EKG shows sinus rhythm with a rate of 64. No acute ST elevation Laboratory Tests Test 01/09/18 08:50 White Blood Count 5.7 TH/MM3 Red Blood Count 3.21 MIL/MM3 Hemoglobin 10.6 GM/DL Hematocrit 29.7 % Mean Corpuscular Volume 92.4 FL Mean Corpuscular Hemoglobin 33.0 PG Mean Corpuscular Hemoglobin Concent 35.7 % Red Cell Distribution Width 13.6 % Platelet Count 183 TH/MM3 Mean Platelet Volume 7.2 FL Neutrophils (%) (Auto) 70.0 % Lymphocytes (%) (Auto) 19.1 % Monocytes (%) (Auto) 7.3 % Eosinophils (%) (Auto) 2.9 % Basophils (%) (Auto) 0.7 % Neutrophils # (Auto) 4.0 TH/MM3 Lymphocytes # (Auto) 1.1 TH/MM3 Monocytes # (Auto) 0.4 TH/MM3 Eosinophils # (Auto) 0.2 TH/MM3 Basophils # (Auto) 0.0 TH/MM3 CBC Comment DIFF FINAL Differential Comment Prothrombin Time 10.4 SEC Prothromb Time International Ratio 1.0 RATIO Activated Partial Thromboplast Time 24.1 SEC Blood Urea Nitrogen 7 MG/DL Creatinine 0.46 MG/DL Random Glucose 108 MG/DL Total Protein 7.1 GM/DL Albumin 4.2 GM/DL Calcium Level 8.5 MG/DL Magnesium Level 2.2 MG/DL Alkaline Phosphatase 63 U/L Aspartate Amino Transf (AST/SGOT) 14 U/L Alanine Aminotransferase (ALT/SGPT) 14 U/L Total Bilirubin 0.5 MG/DL Sodium Level 122 MEQ/L Potassium Level 3.8 MEQ/L Chloride Level 87 MEQ/L Carbon Dioxide Level 27.3 MEQ/L Anion Gap 8 MEQ/L Estimat Glomerular Filtration Rate 129 ML/MIN Total Creatine Kinase 36 U/L Troponin I LESS THAN 0.02 NG/ML B-Type Natriuretic Peptide 467 PG/ML Lipase 259 U/L Last 24 hours Impressions Chest X-Ray 01/09/18 0848 Signed Impressions: Service Date/Time: January 08:58 - CONCLUSION: Emphysema. No acute cardiopulmonary disease Harlan Miranda MD Differential Diagnosis Unstable angina, acute coronary syndrome, musculoskeletal pain, gastritis, dehydration, malnutrition Narrative Course The patient was placed on a traffic monitor specialist. IV access was established. EKG, chest x-ray, labs were performed. I reviewed the patient's recent workup for abdominal pain. Patient appears dehydrated and has a sodium of 122. She has been given a 500 cc normal saline bolus. She was also given aspirin and nitroglycerin with improvement in her pain and blood pressure. Plan for admission for further evaluation and care. Physician Communication Physician Communication 10:50 AM: Spoke with admitting hospitalist Diagnosis Primary Impression: Acute chest pain Additional Impression: Hyponatremia Admitting Information Admitting Physician Requests: Admit Milli Mcdaniel MD Jan 09, 2018 08:53
[2018-01-09] MEDS ORDERED: NITROGLYCERIN 0.4 MG SL 25 TABS/BTL SL ONE ×2 (09:00→09:45)
[2018-01-09] MEDS ORDERED: SODIUM CHLORIDE 0.9% FLUSH 10 ML FLUSH IVF PRN (09:00)
[2018-01-09] MEDS ORDERED: ASPIRIN 325 MG TAB PO ONE (09:00)
[2018-01-09 09:01] LABS: BASOPHIL % 0.7 % (0.0-2.0); EOSINOPHIL # 0.2 TH/MM3 (0-0.4); EOSINOPHIL % 2.9 % (0.0-4.0); HEMATOCRIT 29.7 % (35.0-46.0); HEMOGLOBIN 10.6 GM/DL (11.6-15.3); LYMPH % 19.1 % (9.0-44.0); LYMPHOCYTE # 1.1 TH/MM3 (1.0-4.8); MEAN CELL VOLUME 92.4 FL (80.0-100.0); MEAN CORPUSCULAR HGB CONC 35.7 % (32.0-36.0); MEAN PLATELET VOLUME 7.2 FL (7.0-11.0); MONO % 7.3 % (0.0-8.0); MONOCYTE # 0.4 TH/MM3 (0-0.9); PLATELET COUNT 183 TH/MM3 (150-450); RED BLOOD COUNT 3.21 MIL/MM3 (4.00-5.30); RED CELL DISTRIBUTION WIDTH 13.6 % (11.6-17.2); WHITE BLOOD COUNT 5.7 TH/MM3 (4.0-11.0)
[2018-01-09 09:13] LABS: ALBUMIN 4.2 GM/DL (3.4-5.0); BICARBONATE 27.3 MEQ/L (21.0-32.0); BLOOD UREA NITROGEN 7 MG/DL (7-18); CALCIUM 8.5 MG/DL (8.5-10.1); CHLORIDE 87 MEQ/L (98-107); GLUCOSE,RANDOM 108 MG/DL (74-106); MAGNESIUM 2.2 MG/DL (1.5-2.5)
--- NOTE | 2018-01-09 09:13 | RADRPT ---
EXAM DATE/TIME: 01/09/2018 08:58 [facility] COMPARISON: CHEST SINGLE AP, November 02, 2017, 17:17. INDICATIONS : Chest pain. MEDICAL HISTORY : Congestive heart failure. Ulcers. Osteoporosis. Arthritis. Former smoker. SURGICAL HISTORY : None. ENCOUNTER: Initial ACUITY: 1 day PAIN SCORE: 6/10 LOCATION: chest FINDINGS: The lungs are hyperinflated but focally clear. No effusion is suspected. Cardiomediastinal contours a re satisfactory. There are compressive deformities in the mid thoracic spine and degenerative changes present. CONCLUSION: Emphysema. No acute cardiopulmonary disease Harlan Miranda MD on January 09, 2018 at 9:10 Board Certified Radiologist. This report was verified electronically.
[2018-01-09 09:15] LABS: SODIUM (NA) 122 MEQ/L (136-145)
[2018-01-09 09:18] LABS: PROTHROMBIN TIME - PATIENT 10.4 SEC (9.8-11.6)
[2018-01-09] MEDS ORDERED: MAGN500T2 PO (09:23)
[2018-01-09] MEDS ORDERED: POTA-163 PO (09:23)
[2018-01-09 09:25] LABS: GLOMERULAR FILTRATION RATE 129 ML/MIN (>89)
[2018-01-09 09:26] LABS: ALKALINE PHOSPHATASE 63 U/L (45-117); ALT (GPT) 14 U/L (10-53); AST (GOT) 14 U/L (15-37); CREATININE 0.46 MG/DL (0.50-1.00); TOTAL BILIRUBIN ADULT 0.5 MG/DL (0.2-1.0); TOTAL PROTEIN 7.1 GM/DL (6.4-8.2); TROPONIN I LESS THAN 0.02 NG/ML (0.02-0.05)
[2018-01-09] MEDS ORDERED: SODIUM CHLORID 0.9% 500 ML INJ 500 ML IV ONE (09:30)
[2018-01-09] MEDS ORDERED: NITROGLYCERIN 0.4 MG SL 25 TABS/BTL SL PRN (13:00)
[2018-01-09] MEDS ORDERED: ACETAMINOPHEN 500 MG CPLT PO PRN (13:00)
[2018-01-09] MEDS ORDERED: SODIUM CHLORIDE 0.9% FLUSH 10 ML FLUSH IV FLUSH PRN (13:00)
[2018-01-09] MEDS ORDERED: MORPHINE SULFATE 4 MG/ML INJ IV PUSH PRN (13:00)
[2018-01-09] MEDS ORDERED: cloNIDine HCL 0.1 MG TAB PO PRN (13:00)
[2018-01-09] MEDS ORDERED: ENALAPRILAT 1.25 MG/ML VIAL IV PUSH PRN (13:00)
[2018-01-09] MEDS ORDERED: ACETAMINOPHEN/HYDROcodone 325 MG/7.5 MG TAB PO PRN (13:00)
[2018-01-09] MEDS: MAGNESIUM OXIDE 400 MG TAB PO SCH ×2 (15:00→21:22)
[2018-01-09 15:10] LABS: TROPONIN I LESS THAN 0.02 NG/ML (0.02-0.05)
--- NOTE | 2018-01-09 15:28 | HHI.HP ---
[facility] Noe Pena MD Admission Diagnosis ACUTE CHEST PAIN, HYPONATREMIA Diagnoses: (1) Hypertensive emergency Diagnosis: Principal (2) Acute chest pain Diagnosis: Principal (3) Hyponatremia Diagnosis: Principal Chief Complaint: Chest pain Travel History International Travel<30 Days: No Contact w/Intl Traveler <30 Da: No Traveled to Known Affected Are: No History of Present Illness This is an 82-year-old female with known history of hypertension, hyperlipidemia, congestive heart failure, who presented to hospital because of epigastric abdominal pain, chest pain. Patient states that for weeks now she's been experiencing chest discomfort/epigastric abdominal discomfort located underneath the xiphoid process and lower sternum. States that the pain had been intermittent until last night when the pain got severely worse with the pain as a 9/10 on a pain scale. He states that the pain radiated into her back. She had associated nausea, shortness of breath, lightheadedness, dizziness, diaphoresis. She denied any vomiting. Her family brought her to the hospital for evaluation. Patient was given nitroglycerin without any significant response. States that the pain went down to 6/10 on a pain scale. Patient still complaining of pain at this time. She does go to Dr. Solis on a regular basis and indicates that she may have had a stress test done in fall of 2016 which was normal. Patient had workup done emergency department and found to have hypertensive emergency with uncontrolled hypertension, chest pain. With the administration of nitroglycerin her blood pressure did improve. Blood pressure now 145/81. Patient still complaining of significant epigastric/lower chest pain. Workup did not indicate any intra-abdominal etiology. Given the patient's risk factors is recommended by the ER physician that the patient be admitted evaluated for her chest pain. We'll need to discuss with the patient's supervisor respiratory of appropriate cardiac workup. Review of Systems Constitutional: COMPLAINS OF: Diaphoretic episodes, Dizziness Respiratory: COMPLAINS OF: Shortness of breath Cardiovascular: COMPLAINS OF: Chest pain Gastrointestinal: COMPLAINS OF: Abdominal pain Except as stated in HPI: all other systems reviewed are Neg Past Family Social History Past Medical History Hypertension Hyperlipidemia Chronic systolic congestive heart failure Ischemic cardiomyopathy with ejection fraction 25-30% Osteoarthritis History of temporal arteritis Gastroesophageal reflux Past Surgical History Open reduction and fixation left olecranon Open reduction internal fixation right distal radius Reported Medications Reported Meds & Active Scripts Active Reported Magnesium Oxide 500 Mg Tab 500 Mg PO BID Potassium Chloride ER (Potassium Chloride) 20 Meq Tab Unknown Dose PO DAILY Famotidine 20 Mg Tab 20 Mg PO HS Furosemide 20 Mg Tab 20 Mg PO DAILY Entresto (Sacubitril-Valsartan) 97-103 Mg Tab 1 Tab PO BID Carvedilol 12.5 Mg Tab 12.5 Mg PO BID Pantoprazole (Pantoprazole Sodium) 40 Mg Tab 40 Mg PO DAILY Atorvastatin (Atorvastatin Calcium) 10 Mg Tab 10 Mg PO DAILY Aspirin EC (Aspirin) 81 Mg Tabdr 81 Mg PO DAILY Allergies: Coded Allergies: NSAIDS (Non-Steroidal Anti-Inflamma (Verified Adverse Reaction, Intermediate, GI UPSET, 01/09/18) Family History Reviewed and patient denies any history of heart disease, lung disease, diabetes , cancer, seizure, stroke Social History Patient quit smoking 25 years ago, prior to that she smoked approximately one half pack of cigarettes a day since her 20s. She denies any alcohol or illicit drug Physical Exam Vital Signs Vital Signs Date Time Temp Pulse Resp B/P (MAP) Pulse Ox O2 Delivery O2 Flow Rate FiO2 01/09/18 12:00 98.5 62 16 184/81 (115) 97 01/09/18 11:29 01/09/18 11:28 71 16 141/72 (95) 100 Nasal Cannula 2.00 145/81 (102) 01/09/18 10:21 71 16 141/72 (95) 100 Nasal Cannula 2.00 01/09/18 09:24 68 16 167/73 (104) 100 Nasal Cannula 2.00 01/09/18 08:57 16 01/09/18 08:51 16 98 Nasal Cannula 2.00 01/09/18 08:45 98.1 65 16 221/76 (124) 99 Physical Exam GENERAL: Well-developed, frail and cachectic, in no acute distress. alert and orientated HEENT: Head is normocephalic without any lesions or masses noted. Facial features are symmetric. Eyes: Pupils equal round reactive to light. Extraocular muscles are intact. Conjunctivae were clear. Oropharyngeal: Pharynx without any erythema edema. Tongue is midline without deviation. Buccal mucosa is moist without any masses or lesions NECK: Supple without any masses. Trachea midline no deviation. No JVD, no bruits are appreciated CARDIAC: Regular rhythm, regular rate. S1/S2 are heard. No murmurs gallops or rubs. LUNGS: Clear to auscultation bilaterally. No wheeze, rhonchi or rales. No use of accessory muscles on inspiration or expiration. ABDOMEN: Soft, epigastric abdominal discomfort on palpation. Nondistended. Bowel sounds heard in all 4 quadrants. No organomegaly or masses. Negative rebound, negative guarding EXTREMITIES: No edema, pulses are equal bilaterally. No cyanosis or clubbing NEUROLOGY: Mood and affect appear appropriate. Cranial nerves II through XII grossly intact. Muscle strength 5/5 in upper and lower extremities bilaterally. Deep tendon reflexes are 2+ in upper and lower extremities bilaterally. Laboratory Laboratory Tests Test 01/09/18 08:50 01/09/18 14:35 White Blood Count 5.7 Red Blood Count 3.21 Hemoglobin 10.6 Hematocrit 29.7 Mean Corpuscular Volume 92.4 Mean Corpuscular Hemoglobin 33.0 Mean Corpuscular Hemoglobin Concent 35.7 Red Cell Distribution Width 13.6 Platelet Count 183 Mean Platelet Volume 7.2 Neutrophils (%) (Auto) 70.0 Lymphocytes (%) (Auto) 19.1 Monocytes (%) (Auto) 7.3 Eosinophils (%) (Auto) 2.9 Basophils (%) (Auto) 0.7 Neutrophils # (Auto) 4.0 Lymphocytes # (Auto) 1.1 Monocytes # (Auto) 0.4 Eosinophils # (Auto) 0.2 Basophils # (Auto) 0.0 CBC Comment DIFF FINAL Differential Comment Prothrombin Time 10.4 Prothromb Time International Ratio 1.0 Activated Partial Thromboplast Time 24.1 Blood Urea Nitrogen 7 Creatinine 0.46 Random Glucose 108 Total Protein 7.1 Albumin 4.2 Calcium Level 8.5 Magnesium Level 2.2 Alkaline Phosphatase 63 Aspartate Amino Transf (AST/SGOT) 14 Alanine Aminotransferase (ALT/SGPT) 14 Total Bilirubin 0.5 Sodium Level 122 Potassium Level 3.8 Chloride Level 87 Carbon Dioxide Level 27.3 Anion Gap 8 Estimat Glomerular Filtration Rate 129 Total Creatine Kinase 36 32 Troponin I LESS THAN 0.02 LESS THAN 0.02 B-Type Natriuretic Peptide 467 Lipase 259 Result Diagram: 01/09/18 0850 01/09/18 0850 Imaging Last Impressions Chest X-Ray 01/09/18 0848 Signed Impressions: Service Date/Time: January 08:58 - CONCLUSION: Emphysema. No acute cardiopulmonary disease MD Dash Dorsey VTE Risk Assessment Dash VTE Risk Assessment: Mod/High Risk (score >= 2) Caprini Risk Assessment Model Point Value = 1 Point Value = 2 Point Value = 3 Point Value = 5 Age 41-60 Minor surgery BMI > 25 kg/m2 Swollen legs Varicose veins or History of unexplained or recurrent spontaneous Oral contraceptives or hormone replacement Sepsis (< 1 month) Serious lung disease, including pneumonia (< 1 month) Abnormal pulmonary function Acute myocardial infarction Congestive heart failure (< 1 month) History of inflammatory bowel disease Medical patient at bed rest Age 61-74 Arthroscopic surgery Major open surgery (> 45 min) Laparoscopic surgery (> 45 min) Malignancy Confined to bed (> 72 hours) Immobilizing plaster cast Central venous access Age >= 75 History of VTE Family history of VTE Factor V Leiden Prothrombin [id number] Lupus anticoagulant Anticardiolipin antibodies Elevated serum homocysteine Heparin-induced thrombocytopenia Other congenital or acquired thrombophilia Stroke (< 1 month) Elective arthroplasty Hip, pelvis, or leg fracture Acute spinal cord injury (< 1 month) Prophylaxis Regimen Total Risk Factor Score Risk Level Prophylaxis Regimen 0-1 Low Early ambulation 2 Moderate Order ONE of the following: *Sequential Compression Device (SCD) *Heparin 5000 units SQ BID 3-4 Higher Order ONE of the following medications: *Heparin 5000 units SQ TID *Enoxaparin/Lovenox 40 mg SQ daily (WT < 150 kg, CrCl > 30 mL/min) *Enoxaparin/Lovenox 30 mg SQ daily (WT < 150 kg, CrCl > 10-29 mL/min) *Enoxaparin/Lovenox 30 mg SQ BID (WT < 150 kg, CrCl > 30 mL/min) AND/OR *Sequential Compression Device (SCD) 5 or more Highest Order ONE of the following medications: *Heparin 5000 units SQ TID (Preferred with Epidurals) *Enoxaparin/Lovenox 40 mg SQ daily (WT < 150 kg, CrCl > 30 mL/min) *Enoxaparin/Lovenox 30 mg SQ daily (WT < 150 kg, CrCl > 10-29 mL/min) *Enoxaparin/Lovenox 30 mg SQ BID (WT < 150 kg, CrCl > 30 mL/min) AND *Sequential Compression Device (SCD) Assessment and Plan Assessment and Plan Hypertensive emergency with chest pain Patient blood pressure did improve with the use of nitroglycerin Patient's presenting symptoms could be secondary to the uncontrolled blood pressure Home medications have been continued Vasotec, clonidine as needed Chest pain Patient with significant risk factors include hypertension, hyperlipidemia, ischemic cardiomyopathy, congestive heart failure, tobacco use We will continue to trend cardiac enzymes to rule out any acute coronary event Serial EKGs were reviewed by myself which does not indicate any acute changes Patient's supervisor respiratory is Dr. Solis, will discuss the case with him Possible need to perform nuclear stress test, however patient states that she has probably had one done within the last 6 months. Continue aspirin, beta-mike, KASSIE inhibitor, statin Epigastric abdominal pain Likely secondary to gastritis/esophagitis Continue Protonix Start Carafate Possible abdominal angina with the associated hypertensive emergency Patient states that last endoscopy was approximately 2-3 years ago Will contemplate inpatient versus outpatient workup after cardiac evaluation complete Hyponatremia, unknown etiology Obtain serum, urine osmolality. Urine sodium Check TSH, cortisol level, chest x-ray does not indicate any mass Hypertension, hyperlipidemia, ischemic cardiomyopathy, chronic systolic congestive heart failure Continue Lasix, beta-mike, ARB Fluid restriction Obtain lipid panel Statin continued DVT prevention Sequential compression devices Physician Certification 2 Midnight Certification Type: Admission for Inpatient Services Order for Inpatient Services The services are ordered in accordance with Medicare regulations or non- Medicare payer requirements, as applicable. In the case of services not specified as inpatient-only, they are appropriately provided as inpatient services in accordance with the 2-midnight benchmark. Estimated LOS (days): 2 days is the estimated time the patient will need to remain in the hospital, assuming treatment plan goals are met and no additional complications. Post-Hospital Plan: Not yet determined Chinedu Flood Jan 09, 2018 15:28
[2018-01-09] MEDS ORDERED: LISINOPRIL 10 MG TAB PO SCH (16:00)
[2018-01-09] MEDS: SUCRALFATE 1 GM/10 ML CUP PO SCH ×2 (17:43→21:21)
[2018-01-09] MEDS: NITROGLYCERIN 2% OINT 1 GM PACKET TOPICAL SCH (18:26)
[2018-01-09 20:05] LABS: SODIUM,RANDOM URINE 36 MEQ/L
[2018-01-09 20:22] LABS: OSMOLALITY,URINE 121 MOSM/KG (300-1300)
[2018-01-09 20:39] LABS: CORTISOL 12.9 MCG/DL
[2018-01-09] MEDS ORDERED: TEMAZEPAM 15 MG CAP PO PRN (21:00)
[2018-01-09] MEDS ORDERED: FAMOTIDINE 20 MG TAB PO SCH (21:00)
[2018-01-09] MEDS ORDERED: SACUBITRIL/VALSARTAN 24 MG-26 MG TAB PO ONE (21:00)
[2018-01-09] MEDS: SACUBITRIL/VALSARTAN 97 MG-103 MG TAB PO SCH (21:00)
[2018-01-09] MEDS: CARVEDILOL 12.5 MG TAB PO SCH (21:22)
[2018-01-09] MEDS: SODIUM CHLORIDE 0.9% FLUSH 10 ML FLUSH IV FLUSH SCH (21:23)
[2018-01-09 21:50] LABS: TROPONIN I LESS THAN 0.02 NG/ML (0.02-0.05)
[2018-01-09] MEDS ORDERED: SACUBITRIL/VALSARTAN 49 MG-51 MG TAB PO ONE (22:00)
[2018-01-10] VITALS (8 sets, daily range): BP systolic 95–166; BP diastolic 57–74; PULSE 58–78; RESP 16–20; TEMP 96–98.5; O2SAT 96–97
[2018-01-10] MEDS: NITROGLYCERIN 2% OINT 1 GM PACKET TOPICAL SCH ×2 (06:23)
[2018-01-10 06:43] LABS: AUTOMATED NEUTROPHIL # 3.4 TH/MM3 (1.8-7.7); BASOPHIL % 0.5 % (0.0-2.0); EOSINOPHIL # 0.1 TH/MM3 (0-0.4); EOSINOPHIL % 2.3 % (0.0-4.0); HEMATOCRIT 28.3 % (35.0-46.0); HEMOGLOBIN 9.3 GM/DL (11.6-15.3); LYMPH % 20.5 % (9.0-44.0); MEAN CELL VOLUME 92.7 FL (80.0-100.0); MEAN CORPUSCULAR HEMOGLOBIN 30.5 PG (27.0-34.0); MEAN CORPUSCULAR HGB CONC 32.9 % (32.0-36.0); MEAN PLATELET VOLUME 7.6 FL (7.0-11.0); MONO % 9.1 % (0.0-8.0); MONOCYTE # 0.5 TH/MM3 (0-0.9); NEUT % 67.6 % (16.0-70.0); PLATELET COUNT 187 TH/MM3 (150-450); RED BLOOD COUNT 3.05 MIL/MM3 (4.00-5.30); RED CELL DISTRIBUTION WIDTH 13.5 % (11.6-17.2)
[2018-01-10 06:53] LABS: BICARBONATE 27.3 MEQ/L (21.0-32.0); CALCIUM 8.3 MG/DL (8.5-10.1)
[2018-01-10 06:57] LABS: CREATININE 0.42 MG/DL (0.50-1.00)
[2018-01-10] MEDS: SUCRALFATE 1 GM/10 ML CUP PO SCH ×2 (08:48→12:24)
[2018-01-10] MEDS: MAGNESIUM OXIDE 400 MG TAB PO SCH (08:49)
[2018-01-10] MEDS: SODIUM CHLORIDE 0.9% FLUSH 10 ML FLUSH IV FLUSH SCH (08:50)
[2018-01-10] MEDS ORDERED: ATORVASTATIN 10 MG TAB PO SCH (09:00)
[2018-01-10] MEDS ORDERED: FUROSEMIDE 20 MG TAB PO SCH (09:00)
[2018-01-10] MEDS ORDERED: ASPIRIN EC 81 MG TABEC PO SCH (09:00)
[2018-01-10] MEDS ORDERED: PANTOPRAZOLE SOD 40 MG DELAYED RELEASE TAB PO SCH (09:00)
[2018-01-10] MEDS: SACUBITRIL/VALSARTAN 97 MG-103 MG TAB PO SCH (09:02)
[2018-01-10] MEDS: CARVEDILOL 12.5 MG TAB PO SCH (09:02)
--- NOTE | 2018-01-10 09:26 | HHI.PR ---
Subjective Remarks Patient seen and examined today for follow-up on chest pain, abdominal pain. Patient states that she is doing much better. He is no longer experiencing any chest pain or abdominal pain. She indicates that the Carafate has been working wonderful with controlling her abdominal pain. Patient is very eager to go home and wants to be discharged. I discussed with her that we will recheck her labs for her sodium and if continues to improve after lines we can discharge her home then. She is in agreement at this time. Also discussed with her about her sodium level. She states that her primary medical doctor has notified her multiple times in the past that she does drink too much water. Objective Vitals Vital Signs Date Time Temp Pulse Resp B/P (MAP) Pulse Ox O2 Delivery O2 Flow Rate FiO2 01/10/18 09:01 70 01/10/18 08:00 96 21 01/10/18 08:00 97.4 59 16 166/67 (100) 97 01/10/18 06:13 58 156/64 (94) 01/10/18 04:00 96.6 63 20 124/64 (84) 96 01/10/18 01:44 61 01/10/18 00:00 96.0 72 18 95/57 (70) 97 Manual Cuff/Auscultation 01/09/18 21:28 79 102/63 (76) 01/09/18 21:00 97 21 01/09/18 20:15 72 01/09/18 20:00 97.9 69 20 98/40 (59) 96 Automatic Cuff 01/09/18 16:00 98.2 62 16 148/70 (96) 100 01/09/18 13:36 69 01/09/18 12:00 98.5 62 16 184/81 (115) 97 01/09/18 11:29 01/09/18 11:28 100 Nasal Cannula 2.00 01/09/18 11:28 71 16 141/72 (95) 100 Nasal Cannula 2.00 145/81 (102) 01/09/18 10:21 71 16 141/72 (95) 100 Nasal Cannula 2.00 01/09/18 09:24 68 16 167/73 (104) 100 Nasal Cannula 2.00 I/O 01/09/18 01/09/18 01/09/18 01/10/18 01/10/18 01/10/18 07:00 15:00 23:00 07:00 15:00 23:00 Intake Total 500 ml 300 ml Output Total 400 ml 1150 ml Balance 500 ml -400 ml -850 ml Intake Oral 300 ml IV Total 500 ml Output Urine Total 400 ml 1150 ml # Voids 3 # Bowel Movements 0 Result Diagram: 01/10/1861901/10/18 0620 Objective Remarks GENERAL: Well-developed, frail and cachectic, in no acute distress. alert and orientated HEENT: Head is normocephalic without any lesions or masses noted. Facial features are symmetric. Eyes: Extraocular muscles are intact. Conjunctivae were clear. NECK: Supple without any masses. Trachea midline no deviation. No JVD, CARDIAC: Regular rhythm, regular rate. S1/S2 are heard. No murmurs gallops or rubs. LUNGS: Clear to auscultation bilaterally. No wheeze, rhonchi or rales. No use of accessory muscles on inspiration or expiration. ABDOMEN: Soft, epigastric abdominal discomfort on palpation. Nondistended. Bowel sounds heard in all 4 quadrants. No organomegaly or masses. Negative rebound, negative guarding EXTREMITIES: No edema, pulses are equal bilaterally. No cyanosis or clubbing NEUROLOGY: Mood and affect appear appropriate. Cranial nerves II through XII grossly intact. Moving all extremities, speech is clear Urinary Catheter: No Vascular Central Line Catheter: No A/P Assessment and Plan Hypertensive emergency with chest pain, resolved Patient blood pressure did improve with the use of nitroglycerin Patient's presenting symptoms could be secondary to the uncontrolled blood pressure Home medications have been continued Vasotec, clonidine as needed Chest pain, resolved Patient with significant risk factors include hypertension, hyperlipidemia, ischemic cardiomyopathy, congestive heart failure, tobacco use We will continue to trend cardiac enzymes to rule out any acute coronary event Serial EKGs were reviewed by myself which does not indicate any acute changes Patient's household appliance mechanic is Dr. 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 Discussed with patient that laboratory studies indicate that she may be drinking too much fluid. Patient does agree and indicates that she has been notified by her primary doctor of that before TSH, cortisol level are both normal chest x-ray does not indicate any mass Patient's sodium still improving with current treatment plan, fluid restriction Hypertension, hyperlipidemia, ischemic cardiomyopathy, chronic systolic congestive heart failure Continue Lasix, beta-mike, ARB Fluid restriction Awaiting lipid panel Statin continued DVT prevention Sequential compression devices Discharge Planning Patient is requesting to be discharged home today. Notified her that if her sodium level does continue to improve may build to discharge her home in stable condition after lunch today Activity: Ad ava. Diet: Healthy heart diet Medication per medication reconciliation Follow-up with primary medical doctor in 1 week Chinedu Flood Jan 10, 2018 09:26
[2018-01-10 10:15] LABS: CHOLESTEROL/ HDL RATIO 2.35 RATIO; HDL CHOLESTEROL 52.2 MG/DL (40.0-60.0)
--- NOTE | 2018-01-10 11:51 | EKG ---
Date Performed: 01/09/2018 Time Performed: 08:46:08 PTAGE: 82 years EKG: Sinus rhythm NORMAL ECG PREVIOUS TRACING : 11/03/2017 15.26 Since the prior tracing, there has been no significant mercado DOCTOR: Cathryn Serrano Interpretating Date/Time 01/10/2018 11:51:00
--- NOTE | 2018-01-10 11:51 | EKG ---
Date Performed: 01/09/2018 Time Performed: 14:42:55 PTAGE: 82 years EKG: Sinus rhythm WITH OCCASIONAL ECTOPIC PREMATURE COMPLEXES POSSIBLE INFERIOR MYOCARDIAL INFARCTION BORDERLINE ECG PREVIOUS TRACING : 01/09/2018 08.46 Since the prior tracing, there has been no significant mercado DOCTOR: Cathryn Serrano Interpretating Date/Time 01/10/2018 11:51:16
--- NOTE | 2018-01-10 11:54 | EKG ---
Date Performed: 01/09/2018 Time Performed: 21:09:47 PTAGE: 82 years EKG: Normal Sinus rhythm Poor R-wave progression, consistent with anterior myocardial infarction or lead misplacement PREVIOUS TRACING : 01/09/2018 14.42 When compared to prior EKG, there is a change in the precordial progression. Repeat EKG suggested. Clinical correlation is recommended. DOCTOR: Cathryn Serrano Interpretating Date/Time 01/10/2018 11:52:13
--- NOTE | 2018-01-10 13:36 | HHI.DCPOC ---
Discharge Care Plan Diagnosis: (1) Hyponatremia (2) Acute chest pain (3) Hypertensive emergency Goals to Promote Your Health * To prevent worsening of your condition and complications * To maintain your health at the optimal level Directions to Meet Your Goals Take your medications as prescribed Follow your dietary instruction Follow activity as directed Keep your appointments as scheduled Take your immunizations and boosters as scheduled If your symptoms worsen call your PCP, if no PCP go to Urgent Care Center or Emergency Room Smoking is Dangerous to Your Health. Avoid second hand smoke Call the 24-hour hour crisis hotline for domestic abuse at Chinedu Flood Jan 10, 2018 13:36
[2018-01-10] MEDS ORDERED: SUCR1S PO (13:38)
== END 2018-01-10 15:15 | disposition home or self-care (01) | DRG 641 ==
LOC: PHED 08:39 → PHEDA 10:57 → PH3A 11:43
PROVIDERS: ADMIT Hospitalist; ATTEND Hospitalist
DX: E87.1 Hypo-osmolality and hyponatremia (principal); E86.0 Dehydration; R64 Cachexia; I50.22 Chronic systolic (congestive) heart failure; I11.0 Hypertensive heart disease with heart failure; I16.1 Hypertensive emergency; Z68.1 Body mass index [BMI] 19.9 or less, adult; E78.5 Hyperlipidemia, unspecified; K21.0 Gastro-esophageal reflux disease with esophagitis; I25.5 Ischemic cardiomyopathy; K29.70 Gastritis, unspecified, without bleeding; R63.1 Polydipsia; M19.90 Unspecified osteoarthritis, unspecified site; Z87.891 Personal history of nicotine dependence
CPT/HCPCS: 71046; 80048; 80053; 80061; 82533; 82550; 83690; 83735; 83880; 83930; 83935; 84295; 84300; 84443; 84484; 85025; 85610; 85730; 93005; 96360; J7040